=== PATIENT | male | born 1955 | race African-American/Black ===

== ENCOUNTER 2018-08-10 08:21 | Inpatient (IN) | payer MEDICAID ==
[~2018-08-10] VITALS: Ht 167.6 cm; Wt 83.0 kg
[2018-08-10] MEDS ORDERED: LIPITOR40 MG PO (08:28)
[2018-08-10] MEDS ORDERED: LASIX20 MG PO (08:29)
[2018-08-10] MEDS ORDERED: PHENERGAN25 M1 PO (08:29)
[2018-08-10] MEDS ORDERED: AMOXICILLIN500 M1 PO (08:30)
[2018-08-10] MEDS ORDERED: PRINIVIL10 MG PO (08:31)
[2018-08-10] MEDS ORDERED: KLOR-CON 1010 MEQ PO (08:31)
[2018-08-10] MEDS ORDERED: ASPIRIN325 MG PO (08:31)
[2018-08-10] MEDS ORDERED: AMOX-CLAV PO (08:34)
[2018-08-10 08:59] LABS: BASOPHILS 0.3 % (0-2); EOSINOPHILS 1.5 % (0-7); HEMATOCRIT 37.4 % (42.0-54.0); HEMOGLOBIN 12.9 g/dL (13.5-17.5); IMMATURE GRANULOCYTES 0.4 % (0-5); MCH 28.7 pg (26.0-34.0); MCHC 34.5 g/dL (31.0-37.0); MCV 83.3 fL (80.0-100.0); MONOCYTES 9.4 % (2-11); NEUTROPHILS 72.4 % (40-80); PLATELET COUNT 211 10x3/uL (130-400); RBC 4.49 10x6/uL (4.20-6.10); RDW 15.2 % (11.5-14.5); WBC 7.5 10x3/uL (4.8-10.8)
[2018-08-10 09:15] LABS: ALKALINE PHOSPHATASE 109 U/L (46-116); ALT (SGPT) 53 U/L (10-68); BILIRUBIN - TOTAL 0.66 mg/dL (0.2-1.3); CALC OSMOLALITY 288 mosm/kg (275-300); CALCIUM 8.4 mg/dL (8.5-10.1); CARBON DIOXIDE 23.4 mmol/L (21.0-32.0); CHLORIDE - SERUM 111 mmol/L (98-107); CREATININE - SERUM 1.2 mg/dL (0.6-1.3); GLUCOSE 127 mg/dL (74-106); POTASSIUM - SERUM 3.7 mmol/L (3.5-5.1); PROTEIN - SERUM 6.3 g/dL (6.4-8.2); SODIUM 143 mmol/L (136-145); UREA NITROGEN 17 mg/dL (7-18); eGFR NON AFRICAN AMERICAN 66 mL/min (90-120)
[2018-08-10 09:25] LABS: CKMB 2.8 U/L (0.0-3.6); CREATINE KINASE 262 UL (21-232); PRO BNP 1878 pg/mL (0-125); TROPONIN-I 0.051 ng/mL (0.000-0.060)
--- NOTE | 2018-08-10 11:08 | NUR ---
PATIENT ADMITTED FROM ER TO ROOM 2214. LUNGS CLEAR BILATERALLY IN ALL SAENZ. SLIGHTLY DIMINISHED RIGHT LOWER LOBE. HEART SOUNDS S1 AND S2 HEARD IN ALL SAENZ. BOWEL SOUNDS ACTIVE X 4. SKIN INTACT WITHOUT REDNESS. DENIES PAIN. DENIES NEEDS. WILL CONTINUE TO MONITOR.
[2018-08-10 11:16] VITALS: BP 123/65; BMI 29.6
--- NOTE | 2018-08-10 14:46 | NUR ---
PATIENT SITTING IN BED. REQUESTED AND GIVEN ICE WATER. AT BEDSIDE. DENIES FURTHER NEEDS.
[2018-08-10 16:16] VITALS: BP 123/65
--- NOTE | 2018-08-10 16:49 | NUR ---
MEDICATION GIVEN WITHOUT DIFFICULTY. EDUCATION PROVIDED ON LOVENOX INJECTION. VERBALIZED UNDERSTANDING. REFUSES SCDS R/T UP AD BERNARDO. WILL CONTINUE TO MONITOR.
--- NOTE | 2018-08-10 17:43 | NUR ---
SITTING IN BED EATING DINNER. DENIES NEEDS.
--- NOTE | 2018-08-10 18:36 | NUR ---
PATIENT SITTING UP IN CHAIR. DENIES PAIN. DENIES NEEDS
--- NOTE | 2018-08-10 19:45 | NUR ---
PT SITTING UP IN BEDSIDE CHAIR, NO SIGNS OF DISTRESS. ALERT AND ORIENTED. IV RIGHT HAND SL. DENIES PAIN OR NEEDS. REFUSES SCDS. CL IN REACH, WILL CONT TO MONITOR
[2018-08-10 21:20] VITALS: BP 127/55
[2018-08-11 00:26] VITALS: BP 134/60
[2018-08-11 04:38] VITALS: BP 124/68
[2018-08-11 08:44] VITALS: BP 128/67
[2018-08-11 12:30] VITALS: BP 132/58
[2018-08-11 12:35] VITALS: Ht 167.6 cm; Wt 83.0 kg
[2018-08-11 15:04] LABS: BASOPHILS 0.2 % (0-2); HEMATOCRIT 36.8 % (42.0-54.0); HEMOGLOBIN 12.5 g/dL (13.5-17.5); IMMATURE GRANULOCYTES 0.5 % (0-5); LYMPHOCYTES 11.5 % (15-50); MCH 28.5 pg (26.0-34.0); MEAN PLATELET VOLUME 10.2 fL (7.4-10.4); MONOCYTES 8.9 % (2-11); NEUTROPHILS 77.9 % (40-80); PLATELET COUNT 226 10x3/uL (130-400); RBC 4.38 10x6/uL (4.20-6.10); RDW 15.3 % (11.5-14.5); WBC 8.1 10x3/uL (4.8-10.8)
[2018-08-11 15:16] LABS: ANION GAP 11.5 mmol/L (8-16); CALCIUM 8.4 mg/dL (8.5-10.1); CARBON DIOXIDE 25.1 mmol/L (21.0-32.0); CREATININE - SERUM 1.4 mg/dL (0.6-1.3); POTASSIUM - SERUM 3.6 mmol/L (3.5-5.1)
[2018-08-11 15:38] VITALS: BP 123/60
--- NOTE | 2018-08-11 17:00 | NUR ---
PT SITTING UP IN CHAIR AT BEDSIDE, NO NEEDS VOICED, PT WALKED 3 TIMES AROUND NURSES STATION WITH STUDENT NURSE, TOLERATED WELL, NO C/O SOB WILL CONTINUE WITH PLAN OF CARE
--- NOTE | 2018-08-11 19:45 | NUR ---
PT SITTING UP IN BEDSIDE CHAIR, NO SIGNS OF DISTRESS. ALERT AND ORIENTED. PT STATES NO PAIN OR COMPLAINTS. IV RIGHT HAND SL. PT UP AD BERNARDO, WALKED AROUND NURSES STATION AND WALKS AROUND ROOM. REFUSES SCDS. CL IN REACH, WILL CONT TO MONITOR
[2018-08-11 22:16] VITALS: BP 146/68
[2018-08-12 04:51] VITALS: BP 113/47
[2018-08-12 07:46] LABS: BASOPHILS 0.3 % (0-2); EOSINOPHILS 2.3 % (0-7); HEMOGLOBIN 12.2 g/dL (13.5-17.5); IMMATURE GRANULOCYTES 0.6 % (0-5); LYMPHOCYTES 15.9 % (15-50); MCH 28.6 pg (26.0-34.0); MCHC 33.9 g/dL (31.0-37.0); MCV 84.5 fL (80.0-100.0); MEAN PLATELET VOLUME 10.4 fL (7.4-10.4); MONOCYTES 7.8 % (2-11); NEUTROPHILS 73.1 % (40-80); PLATELET COUNT 230 10x3/uL (130-400); RBC 4.26 10x6/uL (4.20-6.10); RDW 15.7 % (11.5-14.5); WBC 8.6 10x3/uL (4.8-10.8)
[2018-08-12 07:47] LABS: ANION GAP 12.7 mmol/L (8-16); CALCIUM 8.9 mg/dL (8.5-10.1); CREATININE - SERUM 1.2 mg/dL (0.6-1.3); POTASSIUM - SERUM 3.7 mmol/L (3.5-5.1)
[2018-08-12 08:30] VITALS: BP 148/62
--- NOTE | 2018-08-12 09:02 | NUR ---
pt sitting up at bedside having breafast, no s/s of distress, family in room at bedside as well, cl in reach, continue with plan of care
[2018-08-12] MEDS ORDERED: LEVAQUIN750 MG PO (10:47)
[2018-08-12] MEDS ORDERED: ALBUTEROL SULF8.5 GM INH (10:48)
--- NOTE | 2018-08-19 10:38 | EC ---
PATIENT:SIGRID STOLL DATE OF SERVICE: 08/10/18 SEX: M MEDICAL RECORD: [id number] DATE OF : [birth year] LOCATION:[facility] AGE OF PATIENT: 62 ADMISSION DATE: 08/10/18 REFERRING PHYSICIAN: INTERPRETING PHYSICIAN: LESLEY MOHR MD ECHOCARDIOGRAM REPORT ECHO CHARGES 4 ECHO COMPLETE Date: 08/11/18 CLINICAL DIAGNOSIS: EVALUATE LV FUNCTION ECHOCARDIOGRAPHIC MEASUREMENTS (adult normal given) AC root (d.<3.7cm) 2.6 cm LV Septum d (<1.2 cm> 1.2 cm Valve Excursion 1.7 cm LV Septum (systole) 1.4 cm Left Atria (s.<4.0cm> 4.2 cm LVPW d(<1.2cm) 1.2 cm RV (d.<2.3cm) 3.2 cm LVPW (sytole) 1.6 cm LV diastole(<5.6CM) 4.9 cm MV E-F(>70mm/sec) cm LV systole 3.5 cm LVOT Diameter 2.1 cm MV exc.(>10mm) cm Est.ejection fraction (50-75%) % DOPPLER: LVIT cm/sec A 40 cm/sec E 104 cm/sec LA cm/sec RVSP 58.8 mmHg LVOT 98 cm/sec AOP1/2T m/s Asc. Ao 319 cm/sec RVOT 51 cm/sec RA cm/sec PA 70 cm/sec AV Gradient Peak 40.6 mmHg AV Mean 23.3 mmHg AV Area 0.9 cm MV Gradient Peak 6.1 mmHg MV Mean 2.5 mmHg MV Area cm COMMENTS: Supply Chain Associate: Jessica [facility] Die Cutter Diamond: 1 Dr. Mohr TAPE# PACS Pericardial Effusion Y DATE OF SERVICE: 08/12/2018 ECHOCARDIOGRAM FINDINGS: 1. Left ventricular chamber size is within normal limits. Left ventricular systolic function is normal. Overall ejection fraction estimated at 60%. 2. Left atrium is enlarged at 4.2 cm. Right atrium and right ventricle chamber sizes are as well mildly dilated. 3. Valvular structures: Aortic valve demonstrates mild calcific aortic ECHOCARDIOGRAM REPORT [id number] SIGRID STOLL stenosis, valve area calculates to 1.0 cm-squared and has a gradient of 40-mm across the valve. The remaining valvular structures have normal structure and motion. 4. Doppler interrogation elsewise reveals moderate aortic insufficiency, mild mitral regurgitation, mild tricuspid regurgitation, no other valvular insufficiency or stenosis. Pulmonary systolic pressure is estimated at 59 mmHg. 6. No evidence of pericardial effusion or left ventricular thrombus. TRANSINT:[id number] Voice Confirmation ID: [id number] DOCUMENT ID: [id number] LESLEY MOHR MD at 1038 CC: [id number] DICTATION DATE: 08/12/18403 CHIEF DIGITAL MEDIA OFFICER: 08/12/18 0413 DIS IN 08/12/18 [address] [place] [address]
== END 2018-08-12 12:24 | disposition home or self-care (01) | DRG 193 ==
LOC: D.ER 08:21 → D.MS 10:30
PROVIDERS: Family Medicine; ADMIT Internal Medicine Nephrology; ATTEND Internal Medicine Nephrology
DX: J18.9 Pneumonia, unspecified organism (principal); I50.33 Acute on chronic diastolic (congestive) heart failure; I11.0 Hypertensive heart disease with heart failure

== ENCOUNTER → 2018-10-21 07:51 | Outpatient (CLI) | payer MEDICAID ==
[2018-08-11 12:35] VITALS: BMI 29.5
--- NOTE | ~2018-10-21 | ST ---
PATIENT:SIGRID STOLL MEDICAL RECORD: [id number] SEX: M [facility] ORDER #: ADMISSION DATE: 10/21/18 AGE OF PATIENT: 63 REFERRING PHYSICIAN: INTERPRETING PHYSICIAN: LESLEY GORDON MD DATE OF SERVICE: 10/21/2018 INDICATIONS: Angina and hypertension. PROCEDURE IN DETAIL: He was exercised on standard Lexiscan protocol with 33 mCi of sestamibi injected at peak stress and 11 mCi used previously for rest images. FINDINGS: Gated SPECT reveals a depressed ejection fraction 48% with significant LV dilatation. SPECT IMAGING: Cardiolite was used as myocardial perfusion agent. There is a moderate fixed perfusion defect inferiorly throughout the basal, mid apical, and inferior segments. OVERALL IMPRESSION: This is an abnormal nuclear stress test, moderate fixed perfusion defect inferiorly as well as LV dilatation, decreased LV function with stress. This places him in the high-risk abnormality category especially in a patient with no past history of a previous myocardial infarction. We will proceed with coronary angiography as a followup study. TRANSINT:[id number] Voice Confirmation ID: [id number] DOCUMENT ID: [id number] LESLEY GORDON MD CC: MIKE JEROME MD [id number] DICTATION DATE: 10/22/18 1031 HOTEL CONTROLLER: 10/22/18 2256 DEP CLI 10/21/18 [address] [place] [address]
[~2018-10-21 07:51] MED LIST: ALBUTEROL SULF8.5 GM INH; AMOX-CLAV PO; AMOXICILLIN500 M1 PO; ASPIRIN325 MG PO; KLOR-CON 1010 MEQ PO; LASIX20 MG PO; LEVAQUIN750 MG PO; LIPITOR40 MG PO; PHENERGAN25 M1 PO; PRINIVIL10 MG PO
== END | disposition home or self-care (01) ==
LOC: D.HCCARDIO 07:51
PROVIDERS: ATTEND Internal Medicine Interventional Cardiology
DX: R07.9 Chest pain, unspecified (principal)

== ENCOUNTER 2018-11-06 08:31 | Outpatient (CLI) | payer MEDICAID ==
[~2018-11-06] VITALS: Ht 167.6 cm; Wt 83.2 kg
--- NOTE | ~2018-11-06 | HEMODYNAMI ---
PATIENT:SIGRID STOLL MEDICAL RECORD: [id number] : 59 LOCATION:[facility] ADMISSION DATE: 11/06/18 Generatedon:11/06/201811:08 Patient name: SIGRID STOLL Patient #: [id number] SSN: : 1955 Date of study: 11/06/2018 Page: Of Hemodynamic Procedure Report Patient Data Patient Demographics Procedure consent was obtained First Name: SIGRID Gender: Male Last Name: DODIE : 1955 Patient #: [id number] Age: 63 year(s) Race: Black Additional ID: [id number] Contact details [address]: [address] [place] [address] State: [place] City: [place] Zip code: [address] Past Medical History Allergies: No known allergies Admission Admission Data Admission Date: 11/06/2018 Admission Time: 8:31 Lab Results Lab Result Date: 11/06/2018 Lab Result Time: 0:00 Biochemistry Name Units Result Min Max BUN mg/dl 18 --(---*)-- 7 18 Creatinine mg/dl 1.4 --(----)*- 0.6 1.3 eGFR ml/min 66 *-(----)-- 90 120 AM CBC Name Units Result Min Max Hematocrit % 38.3 *-(----)-- 42 54 Hemoglobin g/dl 13.7 --(*---)-- 13.5 17.5 Procedure Procedure Types Cath Procedure Diagnostic Procedure LHC LHC w/Coronaries Procedure Description Procedure Date Procedure Date: 11/06/2018 Procedure Start Time: 10:52 Procedure End Time: 11:04 Procedure Staff Name Function Aubrey Mohr MD Performing Physician Kamilah Bernard RT Monitor Ha Mcdaniel RT Scrub Rossy Mart RT Scrub Gely Mccray RN Nurse Procedure Data Cath Procedure Fluoroscopy Diagnostic fluoroscopy Total fluoroscopy Time: 2 time: 2 min min Diagnostic fluoroscopy Total fluoroscopy dose: 341 dose: 341 mGy mGy Contrast Material Contrast Material Type Amount (ml) Isovue 300 40 Entry Location Entry Primary Successful Side Size Upsize Upsize Entry Closure Bah ccessful Closure Location (Fr) 1 (Fr) 2 (Fr) Remarks Device Remarks Radial Right 6 Fr Mechanical artery Short Compression Estimated blood loss: 10 ml Diagnostic catheters Device Type Used For End Catheter Placement DIAGNOSTIC Benkelman 110cm 5 Procedure Fr catheter ([id number]) Procedure Complications No complications Procedure Medications Medication Administration Route Dosage Oxygen etCO2 Nasal cannula 2 l/min Lidocaine 2% added to field 20 Heparin Flush Bag added to field 2 bags (1000units/500ml NS) 0.9% NaCl I.V. 100 ml/hr Radial Cocktail I.A. 1 syringe (Verapamil 2mg/Nitro 400mcg/Heparin 1500units) Versed I.V. 1 mg Fentanyl I.V. 50 mcg Versed I.V. 1 mg Fentanyl I.V. 50 mcg Hemodynamics Rest HGB: 13.7 (g/dl) Heart Rate: 76 (bpm) Snapshots Pre Cath Intra NCS Post Cath Vital Signs Time Heart Resp SPO2 etCO2 NIBP (mmHg) Rhythm Pain Sedation Rate (ipm) (%) (mmHg) Status Level (bpm) 10:41:15 80 27 97 0 135/78(121) NSR 0 (11) 10(A) , No pain 10:45:31 77 25 96 0 134/61(110) NSR 0 (11) 10(A) , No pain 10:49:51 83 14 97 0 114/67(84) NSR 0 (11) 10(A) , No pain 10:54:07 78 13 98 18 132/58(79) NSR 0 (11) 10(A) , No pain 10:58:19 94 15 99 29.2 120/59(82) NSR 0 (11) 10(A) , No pain 11:02:31 78 15 96 30 111/59(81) NSR 0 (11) 10(A) , No pain Medications Time Medication Route Dose Verified Delivered Reason Notes Effectiveness by by 10:39:46 Oxygen etCO2 2 l/min Aubrey Hong used for Nasal Onur Mccray supervisor travel trailer cannula 10:39:53 Lidocaine 2% added 20ml Aubrey Burgos for local to vial Onur Mohr MD anesthetic field 10:39:59 Heparin Flush added 2 bags Aubrey Burgos used for Bag to Onur Mohr MD procedure (1000units/500ml field NS) 10:40:08 0.9% NaCl I.V. 100 Aubrey Hong Per ml/hr Onur Mccray RN physician 10:52:05 Versed I.V. 1 mg Aubrey Hong for sedation Onur Mccray RN 10:52:10 Fentanyl I.V. 50 mcg Aubrey Hong for sedation Onur Mccray RN 10:56:34 Radial Cocktail I.A. 1 Aubrey Burgos for (Verapamil syringe Onur Mohr MD vasodilation 2mg/Nitro 400mcg/Heparin 1500units) 10:56:43 Versed I.V. 1 mg Aubrey Hong for sedation Onur Mccray RN 10:56:46 Fentanyl I.V. 50 mcg Aubrey Hong for sedation Onur Mccray RN Procedure Log Time Note 10:20:25 Ha Mcdaniel RT(R) sent for patient. Start room use. 10:22:32 Signed procedure consent form obtained from patient. 10:22:34 Diagnostic Cath status Elective 10::59 Time tracking: Regular hours (M-F 7:00 - 5:00) 10:23:04 Plan of Care:Hemodynamics will remain stable., Cardiac rhythm will remain stable., Comfort level will be maintained., Respiratory function will remain adequate., Patient/ family verbilizes understanding of procedure., Procedure tolerated without complication., Recovers from procedure without complications.. 10:23:13 Patient allergic to No known allergies 10:33:42 Lab Result : BUN 18 mg/dl 10:33:42 Lab Result : Creatinine 1.4 mg/dl 10:33:42 Lab Result : eGFR AM 66 ml/min 10:33:42 Lab Result : Hemoglobin 13.7 g/dl 10:33:42 Lab Result : Hematocrit 38.3 % 10:33:48 Patient received from Pre/Post Procedure Room to CCL 1 Alert and oriented. Tansferred to table in Supine position. 10:33:50 Warm blankets applied, and phil hugger turned on for patient comfort. 10:33:50 Correct patient and procedure confirmed by team. 10:33:52 ECG and BP/O2 sat monitors applied to patient. 10:39:46 Oxygen 2 l/min etCO2 Nasal cannula was administered by Gely Mccray RN; used for procedure; 10:39:53 Lidocaine 2% 20ml vial added to field was administered by Aubrey Mohr MD; for local anesthetic; 10:39:59 Heparin Flush Bag (1000units/500ml NS) 2 bags added to field was administered by Aubrey Mohr MD; used for procedure; 10:40:08 0.9% NaCl 100 ml/hr I.V. was administered by Gely Mccray RN; Per physician; 10:40:09 Vital chart was started 10:48:57 Baseline sample Acquired. 10:49:00 Rhythm: sinus rhythm 10:49:01 Full Disclosure recording started 10:49:12 H&P Date Dictated: 10/15/2018 Within 30 days and on chart., H&P Addendum completed by physician on day of procedure. (MUST COMPLETE FOR ALL OUTPATIENTS). 10:49:13 Pre-procedure instructions explained to patient. 10:49:13 Pre-op teaching completed and patient verbalized understanding. 10:49:15 Family in patients room. 10:49:16 Patient NPO since Midnight. 10:49:17 Is patient on blood thinner?No 10:49:20 Patient diabetic? No. 10:49:23 Previous problem with sedation/anesthesia? No ? 10:49:24 Snore? Yes 10:49:26 Sleep apnea? No 10:49:32 Deviated septum? No 10:49:33 Opens mouth fully? Yes 10:49:34 Sticks out tongue? Yes 10:49:37 Dentures? No ? 10:49:53 Airway obstruction? No ? 10:49:58 Modified See's test Ulnar < 7 seconds 10:50:01 Patient pain scale 0/10 ?. 10:50:13 IV patent on arrival in left hand with 0.9% NaCl at [facility]. 10:50:16 Lab results completed and on chart. 10:50:19 Right Radial & Right Groin area was prepped with chlora-prep and draped in sterile fashion 10:50:20 Alarms reviewed by R. N. 10:50:21 Sharps counted by scrub and verified by R.N. 10:50:23 Use device set Radial Dx or PCI 10:50:24 ACIST Syringe (27872) opened to sterile field. 10:50:25 Bag Decanter (2002S) opened to sterile field. 10:50:26 ACIST Hand Control (58906) opened to sterile field. 10:50:26 ACIST Manifold (57477) opened to sterile field. 10:50:29 Tegaderm 4 x 4 (1626W) opened to sterile field. 10:50:43 Medline Cath Pack ([id number]) opened to sterile field. 10:50:44 MBrace Wrist Support ([id number]) opened to sterile field. 10:50:45 EMERALD Guide Wire (746-349) opened to sterile field. 10:50:46 SHEATH 6FR RAIN (7773869) opened to sterile field. 10:51:43 --------ALL STOP TIME OUT------ 10:51:43 Final Timeout: patient, procedure, and site verified with staff and physician. All members of the team are in agreement. 10:51:44 Right Radial & Right Groin site verified by team. 10:51:48 Fire Safety Assessment: A--An alcohol-based skin anteseptic being used preoperatively., C--Open oxygen or nitrous oxide is being used., D--An ESU, laser, or fiber-optic light is being used. 10:51:50 Physical assessment completed. ASA score P 2 - A patient with mild systemic disease as per Aubrey Mohr MD. 10:51:55 2) 60-89 Mildly reduced kidney function, and other findings (as for stage 1) point to kidney disease. 10:51:59 Maximum allowable contrast does (3.7 X eGFR X 0.75)183 ml. 10:52:02 Sedation plan: IV Moderate Sedation Medication:Versed, Fentanyl 10:52:05 Versed 1 mg I.V. was administered by Gely Mccray RN; for sedation; 10:52:10 Fentanyl 50 mcg I.V. was administered by Gely Mccray RN; for sedation; 10:52:48 Procedure started. 10:52:54 Local anesthetic to right radial artery with Lidocaine 2% by Aubrey Mohr MD.INITIAL ACCESS ONLY 10:54:11 Zero performed for pressure channel P1 10:55:13 A 6 Fr Short sheath was inserted into the Right Radial artery 10:56:34 Radial Cocktail (Verapamil 2mg/Nitro 400mcg/Heparin 1500units) 1 syringe I.A. was administered by Aubrey Mohr MD; for vasodilation; 10:56:43 Versed 1 mg I.V. was administered by Gely Mccray RN; for sedation; 10:56:46 Fentanyl 50 mcg I.V. was administered by Gely Mccray RN; for sedation; 10:57:13 A DIAGNOSTIC Benkelman 110cm 5 Fr catheter ([id number]) was advanced over the wire and used for Procedure. 10:58:17 LV gram done using CABRERA 10:58:19 Injector settings: Ml/sec: 5, Volume: 15, 10:58:28 EF : 40 % 10:59:25 RCA angiography performed. 10:59:30 Catheter exchanged over wire. 11:00:44 GUIDE 6FR EBU 4.0 guide catheter ([id number]) opened to sterile field. 11:01:02 6 Fr EBU 4 guide catheter was inserted over the wire 11:01:25 LCA angiography performed. 11:01:35 Catheter removed. 11:01:40 Procedure ended.(Physican Out) 11:01:51 TR BAND Standard ([id number]) opened to sterile field. 11:01:56 Fluoroscopy time 02.00 minutes. 11:02:00 Fluoroscopy dose: 341 mGy 11:02:00 Flurop Dose total: 341 11:02:03 Contrast amount:Isovue 300 40ml. 11:02:06 Sharps counted by scrub and verified by R.N. 11:02:27 Sheath removed intact; hemostasis achieved with Mechanical Compression to the Right Radial artery. 11:02:31 TR band inflated with 10cc of air. 11:02:37 Post-procedure physical assessment completed. ASA score P 2 - A patient with mild systemic disease as per Aubrey Mohr MD. 11:02:39 Post procedure rhythm: sinus rhythm 11:02:44 Estimated blood loss: 10 ml 11:02:45 Post procedure instruction explained to patient.Patient verbalizes understanding. 11:02:45 Patient needs reinforcement of post procedure teaching. 11:03:49 Procedure and supply charges have been captured, reviewed, submitted and are correct. 11:03:51 Procedure Complication : No complications 11:03:53 Vital chart was stopped 11:03:53 See physician's report for complete and final results. 11:03:56 Report given to Pre/Post Procedure Room. 11:03:59 Patient transfered to Pre/Post Procedure Room with Bed. 11:04:01 Procedure ended. 11:04:01 Full Disclosure recording stopped 11:04:06 End room use (Document Last) Device Usage Item Name Manufacture Quantity Catalog Hospital Part Current Minima l Lot# / Number Charge Number Stock Stock Serial# Code ACIST Acist 1 69310 660985 870663 949130 20 Syringe Medical (68025) Systems Inc Bag Microtek 1 2001S 580456 80032 982283 5 Decanter Medical Inc. (2001S) ACIST Hand Acist 1 36522 386369 661983 825782 5 Control Medical (75739) Systems Inc ACIST Acist 1 38952 514594 814387 962320 5 Manifold Medical (29335) Systems Inc Tegaderm 4 3M 1 1626W 814821 674428 343010 5 x 4 (1626W) Medline Medline 1 [id number] 039123 65735 057023 5 Cath Pack ([id number]) MBrace Advanced 1 140-0250-00 412353 32490 754312 5 Wrist Vascular Support Dynamics (010048409) EMERALD Cardinal 1 502-455 697300 637648 819536 5 Guide Wire Health (502455) SHEATH 6FR Cardinal 1 [id number] 066340 7032691 879396 5 [facility] (0773033) DIAGNOSTIC Terumo 1 40-3983 259925 909630 325311 5 Benkelman 110cm 5 Fr catheter (584490) GUIDE 6FR Medtronic 1 [id number] 199760 97505 976916 1 EBU 4.0 guide catheter ([id number]) TR BAND Terumo 1 [id number] 114559 057657 832549 40 Standard ([id number]) Signature Audit Mchenry Stage Time Signature Unsigned Intra-Procedure 11/06/2018 Kamilah Bernard 11:08:42 AM RT(R) Signatures Performing Physician : Signature : Aubrey Mohr MD Date : Time : Monitor : Kamilah Bernard Signature : RT Date : Time : Nurse : Buffie Mccray RN Signature : Date : Time : [address] [place] [address]
[2018-11-06] MEDS ORDERED: COREG 3.1253.125 MG PO (08:54)
[2018-11-06 09:00] VITALS: BP 121/61; Ht 167.6 cm; Wt 83.2 kg
[2018-11-06 09:10] LABS: BASOPHILS 0.3 % (0-2); EOSINOPHILS 1.7 % (0-7); HEMATOCRIT 38.3 % (42.0-54.0); HEMOGLOBIN 13.7 g/dL (13.5-17.5); IMMATURE GRANULOCYTES 0.4 % (0-5); LYMPHOCYTES 14.9 % (15-50); MCH 29.6 pg (26.0-34.0); MCHC 35.8 g/dL (31.0-37.0); MCV 82.7 fL (80.0-100.0); MEAN PLATELET VOLUME 9.8 fL (7.4-10.4); MONOCYTES 8.5 % (2-11); NEUTROPHILS 74.2 % (40-80); PLATELET COUNT 188 10x3/uL (130-400); RBC 4.63 10x6/uL (4.20-6.10); RDW 13.6 % (11.5-14.5); WBC 7.3 10x3/uL (4.8-10.8)
[2018-11-06 09:26] LABS: ANION GAP 11.9 mmol/L (8-16); CARBON DIOXIDE 24.7 mmol/L (21.0-32.0); CREATININE - SERUM 1.4 mg/dL (0.6-1.3); POTASSIUM - SERUM 3.6 mmol/L (3.5-5.1)
--- NOTE | 2018-11-06 11:30 | NUR ---
2L NC, NO RESP DISTRESS. RIGHT WRIST TR BAND CDI, NO BLEEDING OR HEMATOMA NOTED. NO C/O PAIN OR NAUSEA. VSS. FAMILY AT BEDSIDE, CALL LIGHT WITHIN REACH.
--- NOTE | 2018-11-06 12:00 | NUR ---
3CC OF AIR REMOVED FROM TR BAND WITH NO BLEEDING NOTED. SIPPING ON DRINK AND EATING SANDWICH WITH NO C/O NAUSEA. VSS. WILL CONTINUE TO MONITOR.
--- NOTE | 2018-11-06 12:18 | NUR ---
3CC OF AIR REMOVED FROM TR BAND WITH NO BLEEDING NOTED.
--- NOTE | 2018-11-06 12:36 | NUR ---
DARRYL AT BEDSIDE PERFORMING ECHO PER ORDERS.
--- NOTE | 2018-11-06 12:50 | NUR ---
LEFT PIV D/C'D WITH CATHETER INTACT, BAND AID TO SITE. 3CC OF AIR REMOVED FROM TR BAND WITH NO BLEEDING NOTED. UP TO BEDSIDE TO GET DRESSED.
--- NOTE | 2018-11-06 13:00 | NUR ---
REMAINING AIR REMOVED FROM TR BAND WITH NO BLEEDING NOTED. DRESSING PLACED TO SITE. DISCHARGE INSTRUCTIONS GIVEN TO PT AND FAMILY, BOTH VERBALIZED UNDERSTANDING.
--- NOTE | 2018-11-06 13:15 | NUR ---
TAKEN OUT VIA WHEELCHAIR BY CATH BURGLAR ALARM MECHANIC. LEFT FACILITY WITH FAMILY AND ALL PERSONAL BELONGINGS.
--- NOTE | 2018-11-06 16:52 | OP ---
PATIENT NAME: SIGRID STOLL MEDICAL RECORD: [id number] :59 LOCATION:D.CAT ADMISSION DATE: SURGEON: LESLEY GORDON MD DATE OF OPERATION: 11/06/2018 PROCEDURES: 1. Left heart catheterization. 2. Selective coronary angiography. 3. Left ventriculogram. INDICATION: Angina, shortness of breath, lower extremity swelling. PROCEDURE IN DETAIL: After informed consent was obtained and after a detailed description of risks, benefits as well as alternative therapies, the patient elected to proceed with angiogram and heart catheterization. The right femoral area was prepped and draped in normal sterile fashion. The right radial artery was prepped and draped in normal sterile fashion. Right radial artery was cannulated via modified Seldinger technique with placement of 6-Faroese sheath. All catheters exchanged through this sheath. FINDINGS: The left ventriculogram was performed in standard 30-degree CABRERA view, reveals a mildly dilated left ventricle, ejection fraction preserved at 50% to 55%. There is a 30-mm gradient across the aortic valve. SELECTIVE CORONARY ANGIOGRAPHY: Left main, left anterior descending, left circumflex, right coronary artery are all smooth-walled vessels with no angiographic evidence of coronary artery disease. OVERALL IMPRESSION: Aortic stenosis is present with a 30-mm gradient across the aortic valve. Mildly dilated left ventricle, but preserved LV function. We will get an echocardiogram to evaluate for aortic stenosis. TRANSINT:[id number] Voice Confirmation ID: [id number] DOCUMENT ID: [id number] LESLEY GORDON MD at 1652 CC: [id number] DICTATION DATE: 11/06/18 1300 FISH BUTCHER: 11/06/18 1311 DEP CLI 11/06/18 [facility] [address] [place] [address]
--- NOTE | 2018-11-06 16:52 | EC ---
PATIENT:SIGRID STOLL DATE OF SERVICE: 11/06/18 SEX: M MEDICAL RECORD: [id number] DATE OF : 59 LOCATION:D.CAT AGE OF PATIENT: 63 ADMISSION DATE: 11/06/18 REFERRING PHYSICIAN: INTERPRETING PHYSICIAN: LESLEY MOHR MD ECHOCARDIOGRAM REPORT ECHO CHARGES 4 ECHO COMPLETE Date: 11/06/18 CLINICAL DIAGNOSIS: DILATED CARDIOMYOPATHY ECHOCARDIOGRAPHIC MEASUREMENTS (adult normal given) AC root (d.<3.7cm) 2.6 cm LV Septum d (<1.2 cm> 1.2 cm Valve Excursion 1.1 cm LV Septum (systole) 1.7 cm Left Atria (s.<4.0cm> 4.4 cm LVPW d(<1.2cm) 1.4 cm RV (d.<2.3cm) 2.9 cm LVPW (sytole) 1.9 cm LV diastole(<5.6CM) 6.8 cm MV E-F(>70mm/sec) cm LV systole 4.4 cm LVOT Diameter 2.1 cm MV exc.(>10mm) cm Est.ejection fraction (50-75%) % DOPPLER: LVIT cm/sec A 46.0 cm/sec E 70.0 cm/sec LA cm/sec RVSP 73.0 mmHg LVOT 74.0 cm/sec AOP1/2T 306.0m/s Asc. Ao 295 cm/sec RVOT 46.0 cm/sec RA cm/sec PA 92.0 cm/sec AV Gradient Peak 35.0 mmHg AV Mean 20.4 mmHg AV Area 0.9 cm MV Gradient Peak 4.8 mmHg MV Mean 1.8 mmHg MV Area cm COMMENTS: Public Information Specialist: 1 DARRYL REEDEROE Assistant Grocery Store Manager: 1 Dr. Mohr TAPE# PACS Pericardial Effusion Y DATE OF SERVICE: 11/06/2018 FINDINGS: 1. Left ventricular chamber size is mildly dilated. Left ventricular systolic function is normal at 55%. 2. Left atrium is enlarged at 4.4 cm. Right atrium and right ventricle chamber sizes are as well mildly dilated. 3. Valvular structures: Aortic valve is most likely a bicuspid aortic valve. There is moderate aortic stenosis, valve area calculates to 0.9 cm-squared with gradient of 35 mm across the valve. The remaining valvular structures have ECHOCARDIOGRAM REPORT [id number] SIGRID STOLL normal structure and motion. 4. Doppler interrogation elsewise reveals moderate aortic insufficiency, jqme-sz-rvtfrwwc mitral regurgitation, jrlb-wb-wyxcvrgg tricuspid regurgitation, no other valvular insufficiency or stenosis. Pulmonary systolic pressure is elevated at 73 mmHg. 5. Small pericardial effusion is present. This is not hemodynamically significant. TRANSINT:[id number] Voice Confirmation ID: [id number] DOCUMENT ID: [id number] LESLEY MOHR MD at 1652 CC: [id number] DICTATION DATE: 11/06/18 1301 OUTSIDE SALES CONSULTANT: 11/06/18 1314 DEP CLI 11/06/18 [facility] [address] [place] [address]
== END 2018-11-06 13:15 | disposition home or self-care (01) ==
LOC: D.CATH 08:31
PROVIDERS: ATTEND Internal Medicine Interventional Cardiology
DX: I35.0 Nonrheumatic aortic (valve) stenosis (principal); Z01.812 Encounter for preprocedural laboratory examination

== ENCOUNTER 2018-11-12 06:40 | Inpatient (IN) | payer MEDICAID ==
[~2018-11-12] VITALS: Ht 167.6 cm; Wt 88.0 kg
[~2018-11-12 06:40] MED LIST changes: +COREG 3.1253.125 MG PO
[2018-11-12 11:11] LABS: LYMPHOCYTES 23.9 % (15-50); MCH 29.8 pg (26.0-34.0); MCHC 34.9 g/dL (31.0-37.0); MCV 85.5 fL (80.0-100.0); MEAN PLATELET VOLUME 9.7 fL (7.4-10.4); NEUTROPHILS 66.5 % (40-80); PLATELET COUNT 197 10x3/uL (130-400); RBC 5.03 10x6/uL (4.20-6.10); RDW 14.8 % (11.5-14.5); WBC 8.1 10x3/uL (4.8-10.8)
[2018-11-12 11:18] LABS: APTT 27.8 SECONDS (22.8-39.4); INR 1.04 (0.85-1.17); PROTIME 13.1 SECONDS (11.6-15.0)
[2018-11-12 11:21] LABS: APPEARANCE CLEAR (CLEAR); BILIRUBIN NEGATIVE (NEGATIVE); COLOR YELLOW (YELLOW); GLUCOSE NEGATIVE (NEGATIVE); KETONE NEGATIVE (NEGATIVE); NITRITE NEGATIVE (NEGATIVE); PROTEIN NEGATIVE (NEGATIVE); SPECIFIC GRAVITY 1.005 (1.005-1.020); UROBILINOGEN NORMAL (NORMAL)
[2018-11-12 11:36] LABS: ALBUMIN 3.3 g/dL (3.4-5.0); BILIRUBIN - TOTAL 0.61 mg/dL (0.2-1.3); CALCIUM 8.7 mg/dL (8.5-10.1); CARBON DIOXIDE 29.2 mmol/L (21.0-32.0); CREATININE - SERUM 1.5 mg/dL (0.6-1.3); PHOSPHOROUS 2.9 mg/dL (2.5-4.9); POTASSIUM - SERUM 4.2 mmol/L (3.5-5.1); PROTEIN - SERUM 6.7 g/dL (6.4-8.2); T4 THYROXIN - FREE 1.06 ng/dL (0.76-1.46); THYROID STIMULATING HORMONE 4.75 uIU/mL (0.36-3.74); URIC ACID 8.4 mg/dL (2.6-7.2)
[2018-11-17] VITALS (69 sets, daily range): BP systolic 70–155; BP diastolic 46–81; BMI 27.0; BMI 30.6
--- NOTE | 2018-11-17 12:00 | NUR ---
PT ARRIVED TO UNIT AROUND 1133 VIA BED FROM OR. INTUBATED WITH 8.0 ETT 25 AT THE LIP. VENT SETTINGS R-14, TV 550, FIO2 60%, PEEP 5. CONNECTED TO ICU TELEMETRY. RIJ WITH PLASMOLYTE AT 100ML/HR, MELISSA AT 0.6MCG/KG/MIN. CVL DRESSING C/D/I. MIDSTERNAL INCISION WITH DRESSING C/D/I. SUBTERNAL DRESSING WITH CT X [address] CONNECTED TO 20CM SUCTION. NO AIR LEAK NOTED. TPM WIRES CONNECTED, PACEMAKER IS CURRENTLY OFF. RIGHT RADIAL SONDRA IN PLACE WITH WRIST PROTECTOR. 20G PIV ON RIGHT AC SALINE LOC. MORALEZ CATHETER IN PLACE WITH CLEAR YELLOW URINE NOTED. SCDS AND NATAN HOSE ON BOTH LE. SWANGANZ AT 50CM ON RIGHT IJ. WRIST RESTRAINTS APPLIED PER ORDERS. SIDE RAILS UP X 2. BED PLACED IN LOW POSITION. WILL CONTINUE TO MONITOR CLOSELY.
--- NOTE | 2018-11-17 13:10 | NUR ---
DR. MCGOVERN NOTIFIED OF INCREASE OUT PUT FROM CHEST TUBE. BP IN LOW 90S WITH MELISSA INFUSING AT 0.9MCG/KG/MIN.
--- NOTE | 2018-11-17 13:15 | NUR ---
250ML BOLUS BEING GIVE AT THIS TIME PER DR. MCGOVERN.
--- NOTE | 2018-11-17 13:23 | NUR ---
DR. MCGOVERN NOTIFIED OF ABGS. ORDERED ONE AMP OF BICARB. RECHECK ABG'S IN 30MIN.
--- NOTE | 2018-11-17 14:00 | NUR ---
ANEL WITH DR. MCGOVERN NOTIFIED THAT BP IS CONTINUES IN LOW 90S AND MICHELLE 80S. ABG RESULTS GIVEN TO HER. WILL NOTIFY DR. MCGOVERN AND GET BACK TO ME WITH ORDERS.
--- NOTE | 2018-11-17 14:26 | NUR ---
DR. MCGOVERN ORDERED 500CC BOLUS TO BE GIVEN AND CHECK PLATELETS AND PT AND INR.
--- NOTE | 2018-11-17 14:38 | NUR ---
500CC BOLUS GIVEN PER ORDERS. LAB DRAWN AND SENT TO LAB. WAITING ON RESULTS.
--- NOTE | 2018-11-17 15:08 | NUR ---
1GM CALCIUM CLORIDE GIVEN PER DR. MCGOVERN. 250CC BOLUS INFUSING AT THIS TIME PER DR. MCGOVERN. VITAMIN K INITIATED. PRESSURE BAGS SWITCHED TO NS.
--- NOTE | 2018-11-17 16:37 | NUR ---
4 UNITS OF FFP GIVEN PER ORDERS. BLOOD DRAWN AT THIS TIME TO RECHECK PT AND INR. SAMPLET SENT TO LAB.
--- NOTE | 2018-11-17 16:42 | MORECARE ---
CASE MANAGEMENT DISCHARGE SUMMARY PATIENT: SIGRID STOLL GENE UNIT: [id number] ADM DATE: 11/17/18 AGE: 63 : 59 SEX: M [facility] AUTHOR: SUSHIL CHRISTIAN PHYSICIAN: REFERRING PHYSICIAN: DEANGELO MCGOVERN MD DATE OF SERVICE: 11/17/18 Discharge Plan Patient Name: SIGRID STOLL [facility] [facility] 1955 Planned Disposition: Home Anticipated Discharge Date: Discharge Date: Expected LOS: Initial Reviewer: [email or web address] Initial Review Date: 11/17/2018 Generated: 11/17/18 5:42 pm Patient Name: SIGRID STOLL Page 40570 at 1642 All edits/amendments must be made on the electronic document DICTATION DATE: 11/17/181641 BUSINESS EDITOR: DORA 11/17/181641 RPT#: [id number] DC DATE: STATUS: ADM IN [facility] [address] [place] [address] END OF REPORT
--- NOTE | 2018-11-17 16:50 | MORECARE ---
CASE MANAGEMENT DISCHARGE SUMMARY PATIENT: SIGRID STOLL UNIT: [id number] ADM DATE: 11/17/18 AGE: 63 : 59 SEX: M ROOM/BED: D[facility] AUTHOR: GINO,DOC PHYSICIAN: REFERRING PHYSICIAN: DEANGELO MCGOVERN MD DATE OF SERVICE: 11/17/18 Discharge Plan Patient Name: SIGRID STOLL Facility: [facility]:[place] : 1955 Planned Disposition: Home Anticipated Discharge Date: Discharge Date: Expected LOS: Initial Reviewer: [email or web address] Initial Review Date: 11/17/2018 Generated: 11/17/18 5:50 pm Comments DCP- Discharge Planning Updated by [email or web address]: Soledad Garcia on 11/17/18 3:[address] Patient Name: SIGRID STOLL Admission Status: Urgent Accout number: [id number] Admission Date: 11-17-2018 : 1955 Admission Diagnosis: Attending: DEANGELO MCGOVERN Current LOS: 1 Anticipated DC Date: Planned Disposition: Home Primary Insurance: MEDICAID [place] Discharge Planning Comments: CM met with Dulce Garcia patient's significant other at bedside after explaining CM role and obtaining verbal consent. Patient is currently sedated and on ventilator. Dulce states that they live together at their home and plans to return there upon discharge. Dulce feels this would be a safe discharge. CM discussed availability / needs of home health and medical equipment. Dulce denies any discharge needs at this time. Dulce states she will drive him home upon discharge. CM will continue to follow and assist as needed with discharge planning / needs. Belt Builder Helper: Soledad Garcia DCPIA - Discharge Planning Initial Assessment Updated by [email or web address]: Soledad Garcia on 11/17/18 4:42 pm * Is the patient Alert and Oriented? No * How many steps to enter\exit or inside your home? * PCP FRANCHESKA HERNANDES * [facility] * Preadmission Environment Home with Family * ADLs Independent * Equipment None * List name and contact numbers for known caregivers / representatives who currently or will assist patient after discharge: Dory Garcia - [facility] - [phone] * Verbal permission to speak to the caregivers and representatives has been obtained from the patient. N/A * Community resources currently utilized None * Additional services required to return to the preadmission environment? No * Can the patient safely return to the preadmission environment? Yes * Has this patient been hospitalized within the prior 30 days at any hospital? No Last DP export: 11/17/18 3:42 p Patient Name: SIGRID STOLL Page 00432 at 1650 All edits/amendments must be made on the electronic document DICTATION DATE: 11/17/181649 ASSISTANT EDITOR: DORA 11/17/181649 RPT#: [id number] DC DATE: STATUS: ADM IN [facility] [address] [place] [address] END OF REPORT
[2018-11-17 16:54] LABS: INR 1.24 (0.85-1.17); PROTIME 15.1 SECONDS (11.6-15.0)
--- NOTE | 2018-11-17 17:03 | NUR ---
DR. MCGOVERN NOTIFIED OF PT AND INR RESULTS AFTER 4UNITS OF FFP. PT RESTING COMFORTABLY. SPOUSE AT BEDSIDE. BP WITHIN PARAMETERS. OUT PUT IN CHEST TUBE HAS DECREASED. WILL CONTINUE TO MONITOR.
--- NOTE | 2018-11-17 18:32 | NUR ---
UNABLE TO COMPLETE SUICIDE SCREENING AT THIS TIME. PT REMAINS INTUBATED THIS TIME.
--- NOTE | 2018-11-17 19:04 | NUR ---
REPORT RECEIVED, SHIFT ASSESSMENT COMPLETED PER FLOW SHEET. INTUBATED ON VENT, FOLLOWING COMMANDS. RT IJ SWAN FIOR AT APPROXIMATELY 50 CM, LOCKED, PROX INFUSION PORT INFUSING PLASMALYTE AT 100 ML/HR AND ZINACEF AT 11.4 ML/HR. RT IJ CVL PATENT, DRESSING C/D/I. CVP, SONDRA, AND PA PRESSURE LINES LEVELED AND ZEROED WITH GOOD WAVEFORM. SEE FLOW SHEET, FOR COMPLETE ASSESSMENT. WILL CONTINUE TO MONITOR.
--- NOTE | 2018-11-17 19:30 | NUR ---
PATIENT FOLLOWING COMMANDS, RT AT BEDSIDE VENT SETTING CHANGED TO CPAP PER RT. WILL CONTINUE TO MONITOR.
--- NOTE | 2018-11-17 20:03 | NUR ---
AT BEDSIDE, UPDATE GIVEN. WILL CONTINUE TO MONITOR.
--- NOTE | 2018-11-17 20:40 | NUR ---
CALLED AND SPOKE TO DR. MCGOVERN, UPDATE GIVEN ON PATIENT'S CURRENT STATUS. NEW ORDERS RECEIVED, OK TO EXTUBATE, GIVE 20 MEQ KCL OVER 1 HR AND RECHECK NEXT POTASSIUM LEVEL WITH AM LABS.
--- NOTE | 2018-11-17 20:52 | NUR ---
PATIENT EXTUBATED TO 5 L NC. ORAL CARE PROVIDED. ICE CHIPS PROVIDED. TOLERATED WELL. AT BEDSIDE. WILL CONTINUE TO MONITOR.
--- NOTE | 2018-11-17 21:32 | NUR ---
SCHEDULED MEDS GIVEN, WATER PROVIDED.
--- NOTE | 2018-11-17 23:00 | NUR ---
REASSESSMENT COMPLETED PER FLOW SHEET, SEE FOR DETAILS. REPOSITIONED IN BED. WATER PROVIDED. TOLERATING CLEAR LIQUIDS WELL. NO DYSPHAGIA. WILL CONTINUE TO MONITOR.
--- NOTE | 2018-11-17 23:07 | NUR ---
C/O PAIN, PRN PERCOCET GIVEN, WATER PROVIDED. DENIES OTHER NEEDS.
[2018-11-18] VITALS (64 sets, daily range): BP systolic 105–148; BP diastolic 53–75
--- NOTE | 2018-11-18 01:56 | NUR ---
C/O PAIN, PRN MORPHINE GIVEN, DENIES OTHER NEEDS. WILL CONTINUE TO MONITOR.
--- NOTE | 2018-11-18 03:00 | NUR ---
REASSESSMENT COMPLETED PER FLOW SHEET, SEE FOR DETAILS. PULLING 500 X10 ON IS. COUGH NON-PRODUCTIVE. WILL CONTINUE TO MONITOR.
--- NOTE | 2018-11-18 05:00 | NUR ---
COMPLETE BED BATH GIVEN. COMPLETE BED LINEN CHANGE PROVIDED. MORALEZ CARE PROVIDED. SUBSTERNAL DRESSING CHANGED. TOLERATED ALL WELL.
[2018-11-18 06:25] LABS: HEMATOCRIT 30.1 % (42.0-54.0); HEMOGLOBIN 10.5 g/dL (13.5-17.5); MCH 29.6 pg (26.0-34.0); MCHC 34.9 g/dL (31.0-37.0); MCV 84.8 fL (80.0-100.0); MEAN PLATELET VOLUME 9.7 fL (7.4-10.4); PLATELET COUNT 95 10x3/uL (130-400); RBC 3.55 10x6/uL (4.20-6.10); WBC 20.1 10x3/uL (4.8-10.8)
[2018-11-18 06:31] LABS: ALBUMIN 2.7 g/dL (3.4-5.0); ANION GAP 12.9 mmol/L (8-16); BILIRUBIN - TOTAL 1.48 mg/dL (0.2-1.3); CALCIUM 7.6 mg/dL (8.5-10.1); CARBON DIOXIDE 24.3 mmol/L (21.0-32.0); CREATININE - SERUM 1.3 mg/dL (0.6-1.3); POTASSIUM - SERUM 4.2 mmol/L (3.5-5.1); PROTEIN - SERUM 5.4 g/dL (6.4-8.2)
--- NOTE | 2018-11-18 07:00 | NUR ---
RREC'D REPORT AND RESUMED CARE, SLEEPING, AROUSABLE TO VERBAL STIMULI, VSS, DENIES PAIN, O2 AT 5L, RIGHT IJ SWAN WITH CORDIS IN PLACE, PLASMYLITE, ZINACEF INFUSING, MIDSTERNAL AND SUB STERNAL DRESSINGS, IN PLACE, TPM WIRES IN PLACE, TPM NOT ON AT THIS TIME, ANTERIOR CHEST TUBES X2 IN USE, SERO SANGUINOUS DRAINGAG TO CONTAINER, MORALEZ TO GRAVITY WITH QUAN DRAINAGE TO CANISTER, TEDS/SCDS IN USE, IS TO 5OO, ASESSMENT COMPLETED PER FLOWSHEET, ORAL CARE AND SUCTION COMPLETED. CALL LIGHT IN REACH, NO NEEDS AT THIS TIME
--- NOTE | 2018-11-18 07:10 | NUR ---
ORAL CARE DONE WITH PERIDEX
--- NOTE | 2018-11-18 09:00 | NUR ---
MORNING MEDS GIVEN PER MAR FLOWSHEET, TOLERATED WITHOUT DIFFICULTY
[2018-11-18 09:14] LABS: PLATELET ESTIMATE DECREASED
--- NOTE | 2018-11-18 09:15 | NUR ---
SWAN FIOR CATH DC'D BY CARDIOLOGY NURSE: BRITTNEY WITH CATHETER INTACT, PER ORDER, SONDRA AND RIGHT AC PIV DC'D WITH CATHETERS INTACT, GAUZE DRESSINGS APPLIED TOLERATED WITHOUT DIFFICULTY
--- NOTE | 2018-11-18 10:40 | NUR ---
O2 TITRATED TO 3L NC BY RT, SAT 96%
--- NOTE | 2018-11-18 11:00 | NUR ---
SITTING UP IN BED, AAO, CONTIUES TO HAVE TACHYPNEA, 26 BPM, ASSESSMENCOMPLETED PER FLOWSHEET, NO NEEDS AT THIS TIME, CALL LIGHT IN REACH
--- NOTE | 2018-11-18 12:00 | NUR ---
SIGNIFICANT OTHER AT BEDSIDE, STATUS UPDATED, VOICES NO NEEDS A THIS TIME
--- NOTE | 2018-11-18 12:19 | OP ---
PATIENT NAME: SIGRID STOLL MEDICAL RECORD: [id number] :[birth year] LOCATION:[facility].CV04 ADMISSION DATE:11/17/18 SURGEON: STUART MGCOVERN MD DATE OF OPERATION: 11/17/2018 SURGEON: Stuart Mcgovern MD PINBALL MACHINE REPAIRER: Víctor Borges. OPERATION PERFORMED: Aortic valve replacement (21 mm pericardial bioprosthesis). PREOPERATIVE DIAGNOSES: Aortic stenosis and aortic insufficiency. POSTOPERATIVE DIAGNOSES: Aortic stenosis and aortic insufficiency. Congenitally bicuspid aortic valve. ANESTHESIA: General endotracheal anesthesia. ESTIMATED BLOOD LOSS: Total cardiopulmonary bypass with Cell Saver retransfusion. COMPLICATIONS: None. SPECIMENS: Aortic valve leaflets. CONDITION: Stable. DISPOSITION: CV ICU. COMPLICATIONS: None. OPERATIVE FINDINGS: 1. PA pressure elevated 80/42 under general anesthesia. Significantly less after aortic valve replacement. 2. Transesophageal echocardiography confirmed significant aortic insufficiency and aortic stenosis with 2 regurgitant AI jet each 0.8 cm in width and 1+ mitral regurgitation before valve replacement. No mitral regurgitation and no AI after aortic valve replacement. 3. Congenital bicuspid aortic valve with right nonfusion and irregular calcification at the anterior commissure. Replacement of the valve so that the post did not obstruct the right coronary artery. OPERATIVE INDICATION: Aortic stenosis, aortic insufficiency. DESCRIPTION OF PROCEDURE: The patient was brought to the operating suite. General anesthesia was obtained. The patient was prepped and draped. The median sternotomy incision was made, subcutaneous tissue was divided by electrocautery. Sternum was divided with a saw. The pericardium was opened. Heparin was given. The aorta was cannulated. Dual stage venous cannula was inserted, retrograde cardioplegia cannula was inserted. The patient was placed on cardiopulmonary bypass. The patient was cooled. Crossclamp was placed. Cardioplegia was given and the aortic root and then retrograde. The left ventricular vent was placed. Aortotomy was performed. Valve visualized. Calcified valve leaflets were removed. Thorough irrigation performed and all OPERATIVE REPORT [id number] SIGRID STOLL bits of loose debris were removed. The interrupted pledgeted valve sutures were placed from ventricular to aortic side. The valve was sized to 21 mm and a suture was placed through the sewing ring. Valve carefully lowered and placed sutures were tied. Inspecting the valve, there was no subvalvular occlusion and there was no evidence of perivalvular leak. The patient was rewarmed. Aortotomy was closed. Left ventricular apex was de-aired, cross clamp was removed. The aortic root was de-aired through the cardioplegia site and this was then oversewn. The left ventricular vent was removed. Retrograde cardioplegic cannula was removed and oversewn and the patient was fully rewarmed, weaned from cardiopulmonary bypass in a sinus rhythm. The patient was decannulated. The cannula sites were oversewn. Protamine was given. Thorough irrigation was undertaken. Hemostasis was ensured. Drains were placed in the mediastinum, one with the tip in the left pleural cavity and atrial and ventricular pacing wires were placed. Pericardial fat was loosely reapproximated. Sternum was closed with wires. Fascia was closed. Subcutaneous tissues were closed. Skin was closed. Dermabond was placed. The needle and sponge count was reported as correct and the patient was taken to ICU in stable condition. TRANSINT:[id number] Voice Confirmation ID: [id number] DOCUMENT ID: [id number] STUART MCGOVERN MD at 1219 CC: MIKE JEROME MD and LESLEY GORDON [id number] DICTATION DATE: 11/17/18 1154 ROVING TELLER: 11/17/18 1212 ADM IN [facility] [address] [id number]
--- NOTE | 2018-11-18 12:58 | NUR ---
OOB TO CHAIR WITH PHYSICAL THERAPY ASSIST, TOLERATED WITH DISCOMFORT IN CHEST, C/O PAIN 08/28, PERCOCET 10 GIVEN PER MAR FLOWSHEET
--- NOTE | 2018-11-18 15:00 | NUR ---
RESTING UP IN CHAIR, WITH TACHYPNEA, SHALLLO BREATHS, IS 600, NO OTHER ACUTE CHANGES FROM PREVIOUS
--- NOTE | 2018-11-18 16:30 | NUR ---
SIGNIFICANT OTHE AT BEDSIDE, STATUS UPDATE, VOICES NO NEEDS AT THIS TIME
--- NOTE | 2018-11-18 17:00 | NUR ---
CL DINNER TRAY TO BEDSIDE, INDEPENDENT WITH SET UP AND EATING
--- NOTE | 2018-11-18 19:25 | NUR ---
PC TO MS. SUÁREZ PER REQUEST TO BRING PATIENTS CELL PHONE LEFT MESSAGE
--- NOTE | 2018-11-18 21:00 | NUR ---
1900 REPORT RECEIVED CARE ASSUMED. ASSESSMENT DONE SEE FLOW SHEET. INCREASE IN RESPIRATIONS NOTED. NO SIGNS OF ACUTE DISTRESS NOTED. IS 750. WILL CONTINUE TO MONITOR. 2100 MEDS GIVEN PER MAR. NO SINGS OF ACUTE DISTRESS NOTED WILL CONTINUE TO MONITOR.
--- NOTE | 2018-11-18 22:17 | NUR ---
PT AMBULATED FROM CHAIR TO BED. MODERATE ASSISTANCE PROVIDED. VSS. WILL CONTINUE TO MONITOR.
--- NOTE | 2018-11-18 23:00 | NUR ---
REASSESSMENT DONE SEE FLOW SHEET. ARRYTHMIA NOTED. STAT MAG AND K DRAWN. WILL CONTINUE TO MONITOR.
[2018-11-19] VITALS (25 sets, daily range): BP systolic 96–188; BP diastolic 56–83; Ht 167.6 cm; Wt 88.0 kg
[2018-11-19 00:03] LABS: POTASSIUM - SERUM 4.2 mmol/L (3.5-5.1)
--- NOTE | 2018-11-19 00:21 | NUR ---
DR MCGOVERN INFORMED OF PT STATUS NEW ORDERS RECEIVED SEE JUN. WILL CONTINUE TO MONITOR.
--- NOTE | 2018-11-19 03:00 | NUR ---
0100 WATER PROVIDED PER PT REQUEST. 0300 REASSESSMENT DONE SEE FLWO SHEET. NO SING SOF ACUTE DISTRESS NOTED WILL CONTINUE TO MONITOR.
--- NOTE | 2018-11-19 05:00 | NUR ---
IO COLLECTED DAILY WEIGHT COLLECTED. CHG BATH MORALEZ CARE. VSS.
[2018-11-19 06:26] LABS: HEMATOCRIT 29.3 % (42.0-54.0); HEMOGLOBIN 10.1 g/dL (13.5-17.5); MCH 29.4 pg (26.0-34.0); MCHC 34.5 g/dL (31.0-37.0); MCV 85.2 fL (80.0-100.0); MEAN PLATELET VOLUME 10.1 fL (7.4-10.4); RBC 3.44 10x6/uL (4.20-6.10); RDW 14.2 % (11.5-14.5)
[2018-11-19 06:59] LABS: ALBUMIN 2.4 g/dL (3.4-5.0); ANION GAP 11.5 mmol/L (8-16); BILIRUBIN - TOTAL 0.71 mg/dL (0.2-1.3); CALCIUM 7.9 mg/dL (8.5-10.1); CARBON DIOXIDE 24.5 mmol/L (21.0-32.0); CREATININE - SERUM 1.4 mg/dL (0.6-1.3); PROTEIN - SERUM 5.7 g/dL (6.4-8.2)
--- NOTE | 2018-11-19 09:00 | NUR ---
BTB FROM CHAIR, TOLERATED TRANSFER WITH MINIMAL DYSPNEA, ANTERIOR CT DC'D BY MADELINE AND NAOMY DC'D BY JANINA WITHOUT DIFFICULTY
--- NOTE | 2018-11-19 10:20 | NUR ---
OOB TO BATHROOM WITH ASSIST, TOLERATED TRANSFER WITH MINIMAL DYSPNEA, VOIDED AND PASSING GAS
--- NOTE | 2018-11-19 10:32 | NUR ---
AMBULATED WITH PHYSICAL THERAPY 250 FEET TOLERATED WITHOUT DIFFICULTY
--- NOTE | 2018-11-19 11:03 | NUR ---
AMNIODERONE GTT DC'D PER ORDER, UP IN CHAIR WATCHING TV, DENIES PAIN UNLESS MOVING AROUND, NO ACUTE CHANGE FROM PREVIOUS, CALL LIGHT IN REACH, NO NEEDS AT THIS TIME
--- NOTE | 2018-11-19 12:05 | NUR ---
LUNCH TRAY TO BEDSIDE, INDEPENDENT WITH SET UPA ND EATING
--- NOTE | 2018-11-19 13:10 | NUR ---
AMBULATED 500 FEET WITHOUT DIFFICULTY ASSSITED BY PHYSICAL THERAPY
--- NOTE | 2018-11-19 19:00 | NUR ---
REPORT RECEIVED, SHIFT ASSESSMENT COMPLETE SEE FLOW SHEET, PT AAOx4 DENIES PAIN OR NEEDS, RESTING COMFORTABLY IN BED, VSS, NSR ON CM, REPOSITIONED IN BED, WILL CONTINUE TO MONITOR
--- NOTE | 2018-11-19 23:00 | NUR ---
REASSESSMENT COMPLETE PER FLOW SHEET, NO ACUTE CHANGES OR S/S OF DISTRESS NOTED, VSS, REPOSITIONED IN BED, WILL CONTINUE TO MONITOR
[2018-11-20] VITALS (24 sets, daily range): BP systolic 109–150; BP diastolic 65–84
--- NOTE | 2018-11-20 03:00 | NUR ---
REASSESSMENT COMPLETE SEE FLOW SHEET, COMPLETE LINEN AND GOWN CHANGE WITH BATH, PT AMBULATED OOB AND BACK IN BED WITH MINIMAL ASSIST, I/S COMPLETED, PT HAS WEAK EFFORT WITH COUGHING, RT AT BEDSIDE TOR RESP Tx, VSS, PT DENIES NEEDS, WILL CONTINUE TO MONITOR
[2018-11-20 06:07] LABS: HEMATOCRIT 28.5 % (42.0-54.0); HEMOGLOBIN 9.8 g/dL (13.5-17.5); MCH 29.1 pg (26.0-34.0); MCHC 34.4 g/dL (31.0-37.0); MCV 84.6 fL (80.0-100.0); MEAN PLATELET VOLUME 10.3 fL (7.4-10.4); RBC 3.37 10x6/uL (4.20-6.10); RDW 14.2 % (11.5-14.5); WBC 20.1 10x3/uL (4.8-10.8)
[2018-11-20 06:19] LABS: ALBUMIN 2.4 g/dL (3.4-5.0); ANION GAP 11.4 mmol/L (8-16); BILIRUBIN - TOTAL 0.74 mg/dL (0.2-1.3); CALCIUM 8.2 mg/dL (8.5-10.1); CARBON DIOXIDE 26.7 mmol/L (21.0-32.0); CREATININE - SERUM 1.3 mg/dL (0.6-1.3); POTASSIUM - SERUM 4.1 mmol/L (3.5-5.1)
--- NOTE | 2018-11-20 07:00 | NUR ---
UP IN CHAIR WITH NO SIGNS OF DISTRESS, VSS, ASSESSMENT COMPLETED PER FLOWSHEET, ENCOURAGED IS AT 750 MMHG PRESSURE AT THIS TIME, CALL LIGHT IN REACH, NO NEEDS AT THIS TIME
--- NOTE | 2018-11-20 09:00 | NUR ---
MORNING MEDS GIVEN PER JUN FLOWSHEET
--- NOTE | 2018-11-20 11:10 | NUR ---
AMBULATED 1000FT WITH STAND BY ASSIST FROM PHYSICAL THERAPY, NO OTHER ACUTE CHANGE FROM PREVIOUS ASSESSMENT
--- NOTE | 2018-11-20 12:00 | NUR ---
SIGNIFICANT OTHER AT BEDSIDE, STATUS UPDATED, VOICES NO NEEDS AT THIS TIME
--- NOTE | 2018-11-20 12:37 | NUR ---
DR MCGOVERN AT BEDSIDE, COUNSELED WITH PATIENT, NEW ORDER GIVEN
[2018-11-20] MEDS ORDERED: PERCOCET 5-3251 TAB PO (12:43)
--- NOTE | 2018-11-20 15:00 | NUR ---
ATTEMPTS X3 FOR PIV, PT TOLERATED WITHOUT DIFFICULTY WILL LEAVE IN CVL FOR NOW.
--- NOTE | 2018-11-20 16:45 | NUR ---
DINNER TRAY TO BEDSIDE, INDEPENDENT WITH SET UP AND EATING
--- NOTE | 2018-11-20 18:30 | NUR ---
CONTINUES TO SIT UP IN CHAIR NO SIGN OF DISTRESS, VSS, CALL LIGHT IN REACH, VOICES NO NEEDS AT THIS TIME
[2018-11-21] VITALS (11 sets, daily range): BP systolic 110–131; BP diastolic 59–79
[2018-11-21 04:14] LABS: HEMATOCRIT 26.5 % (42.0-54.0); HEMOGLOBIN 9.1 g/dL (13.5-17.5); MCH 29.2 pg (26.0-34.0); MCHC 34.3 g/dL (31.0-37.0); MCV 84.9 fL (80.0-100.0); MEAN PLATELET VOLUME 9.9 fL (7.4-10.4); RBC 3.12 10x6/uL (4.20-6.10); RDW 14.1 % (11.5-14.5)
[2018-11-21 04:28] LABS: ALBUMIN 2.3 g/dL (3.4-5.0); ANION GAP 11.7 mmol/L (8-16); BILIRUBIN - TOTAL 0.68 mg/dL (0.2-1.3); CALCIUM 7.8 mg/dL (8.5-10.1); CARBON DIOXIDE 27.4 mmol/L (21.0-32.0); CREATININE - SERUM 1.1 mg/dL (0.6-1.3); POTASSIUM - SERUM 4.1 mmol/L (3.5-5.1); PROTEIN - SERUM 5.8 g/dL (6.4-8.2)
[2018-11-21] MEDS ORDERED: AMIODARONE HCL200 MG PO (10:07)
[2018-11-21] MEDS ORDERED: COLACE100 MG PO (10:10)
[2018-11-21] MEDS ORDERED: PERCOCET 10-321 EAC1 PO (10:11)
--- NOTE | 2018-11-21 12:44 | NUR ---
1000: DR. OSUNA HERE. DISCHARGE ORDERS REC'D. 1100: TEMP PACING WIRES DC'D BY RAMYA HOPKINS RN 1200: HERE. SALINE LOCK IN R WRIST DC'D. DISCHARGE INSTRUCTIONS REVIEWED WITH AND PATIENT. 1215: DISCHARGED HOME. ESCORTED TO CAR VIA WHEELCHAIR.
--- NOTE | 2018-11-23 18:36 | MORECARE ---
CASE MANAGEMENT DISCHARGE SUMMARY PATIENT: SIGRID STOLL UNIT: [id number] ADM DATE: 11/17/18 AGE: 63 : 59 SEX: M ROOM/BED: D.[facility] AUTHOR: GINODOC PHYSICIAN: REFERRING PHYSICIAN: DEANGELO MCGOVERN MD DATE OF SERVICE: 11/23/18 Discharge Plan Patient Name: SIGRID STOLL Facility: [facility]:[place] : 1955 Planned Disposition: Home Anticipated Discharge Date: Discharge Date: 11/21/2018 Expected LOS: Initial Reviewer: [email or web address] Initial Review Date: 11/17/2018 Generated: 11/23/18 7:36 pm DCP- Discharge Planning Updated by [email or web address]: Soledad Garcia on 11/17/18 3:[address] Patient Name: SIGRID STOLL Admission Status: Urgent Accout number: [id number] Admission Date: 11-17-2018 : 1955 Admission Diagnosis: Attending: DEANGELO MCGOVERN Current LOS: 1 Anticipated DC Date: Planned Disposition: Home Primary Insurance: MEDICAID [place] Discharge Planning Comments: CM met with Dulce Garcia patient's significant other at bedside after explaining CM role and obtaining verbal consent. Patient is currently sedated and on ventilator. Dulce states that they live together at their home and plans to return there upon discharge. Dulce feels this would be a safe discharge. CM discussed availability / needs of home health and medical equipment. Dulce denies any discharge needs at this time. Dulce states she will drive him home upon discharge. CM will continue to follow and assist as needed with discharge planning / needs. Railroad Commissioner: Soledad Garcia DCPIA - Discharge Planning Initial Assessment Updated by [email or web address]: Soledad Garcia on 11/17/18 4:42 pm * Is the patient Alert and Oriented? No * How many steps to enter\exit or inside your home? * PCP FRANCHESKA HERNANDES * [facility] * Preadmission Environment Home with Family * ADLs Independent * Equipment None * List name and contact numbers for known caregivers / representatives who currently or will assist patient after discharge: Dory Garcia - partner - [phone] * Verbal permission to speak to the caregivers and representatives has been obtained from the patient. N/A * Community resources currently utilized None * Additional services required to return to the preadmission environment? No * Can the patient safely return to the preadmission environment? Yes * Has this patient been hospitalized within the prior 30 days at any hospital? No Last DP export: 11/17/18 3:50 p Patient Name: SIGRID STOLL Page 77292 at 1836 All edits/amendments must be made on the electronic document DICTATION DATE: 11/23/181835 MINI LAB OPERATOR: DORA 11/23/181835 RPT#: [id number] DC DATE:11/21/18 STATUS: DIS IN [facility] [address] [place] [address] END OF REPORT
--- NOTE | 2018-11-24 09:52 | TEE ---
PATIENT:SIGRID STOLL GENE MEDICAL RECORD: [id number] LOCATION:[place] [address] AGE OF PATIENT: 63 ADMISSION DATE: 11/17/18 SEX: M REFERRING PHYSICIAN: INTERPRETING PHYSICIAN: LESLEY MOHR MD TRANSESOPHAGEAL ECHOCARDIOGRAM Date: 11/17/18 SULEIMAN CHARGE Y INDICATIONS: AVR PREMEDICATIONS: PATIENT'S RESPONSE PROCEDURE DOPPLER MEASUREMENTS: LVIT LA 5.0 PA RA LVOT RVOT Asc. Ao AV Gradient Peak 135 AV Mean AV Area MV Gradient Peak MV Mean MV Area INTERPRETATION: Doppler: 2-D: COLOR FLOW DOPPLER NORMAL SALINE STUDY: MISCELLANOUS: DIAGNOSIS: PLAN: Mortuary Operations Manager:1 Dr. Mohr Manager Education: Jessica VASQUEZ COMMENTS: DATE OF SERVICE: 11/17/2018 PROCEDURE: Transesophageal echo evaluation of valvular structures during aortic valve replacement. FINDINGS: 1. Left ventricular chamber size is within normal limits. Left ventricular systolic function is normal. Overall ejection fraction estimated at 60%. 2. Left atrium, right atrium, and right ventricular chamber sizes are within TRANSESOPHAGEAL ECHOCARDIOGRAM REPORT [id number] SIGRID STOLL normal limits. 3. Valvular structures: Aortic valve has significant aortic stenosis and calcification, this is definitely bicuspid valve, this is not a new finding. The patient is scheduled for aortic valve replacement. The remaining valvular structures have normal structure and motion. 4. Doppler interrogation elsewise reveals mild mitral regurgitation, [id number] aortic insufficiency. No other valvular insufficiency or stenosis. 5. No evidence of pericardial effusion or left ventricular thrombus. TRANSINT:[id number] Voice Confirmation ID: [id number] DOCUMENT ID: [id number] at 0952 CC: [id number] DICTATION DATE: 11/17/181932 PLASTIC MIXER: 11/18/18 0517 DIS IN 11/21/18 [facility] [address] [place] [address]
== END 2018-11-21 12:20 | disposition home or self-care (01) | DRG 221 ==
LOC: D.SDCHOLD 07:00 → D.CVICU 11-17 05:00 → D.SDCHOLD 11-17 05:00 → D.CVICU 11-17 09:12
PROVIDERS: ADMIT Thoracic Surgery (Cardiothoracic Vascular Surgery); ATTEND Thoracic Surgery (Cardiothoracic Vascular Surgery)
PROC: 5A1221Z Performance of Cardiac Output, Continuous (ICD-10-PCS; 2018-11-17)
PROC: B24BZZ4 Ultrasonography of Heart with Aorta, Transesophageal (ICD-10-PCS; 2018-11-17)
PROC: 02RF0JZ Replacement of Aortic Valve with Synthetic Substitute, Open Approach (ICD-10-PCS; principal; 2018-11-17 07:30)
DX: I35.0 Nonrheumatic aortic (valve) stenosis (principal); I10 Essential (primary) hypertension; E78.5 Hyperlipidemia, unspecified; R07.9 Chest pain, unspecified; I35.1 Nonrheumatic aortic (valve) insufficiency; I48.91 Unspecified atrial fibrillation

== ENCOUNTER → 2018-11-13 07:47 | Outpatient (CLI) | payer MEDICAID ==
[2018-11-06 09:00] VITALS: BMI 29.6
[~2018-11-13 07:47] MED LIST changes: +AMIODARONE HCL200 MG PO; +COLACE100 MG PO; +PERCOCET 10-321 EAC1 PO; +PERCOCET 5-3251 TAB PO; +PROTONIX40 MG PO; +TESSALON PERLE100 MG PO
== END | disposition home or self-care (01) ==
LOC: D.CT 11-12 14:30
PROVIDERS: ATTEND Thoracic Surgery (Cardiothoracic Vascular Surgery)
DX: I65.23 Occlusion and stenosis of bilateral carotid arteries (principal); Z86.73 Personal history of transient ischemic attack (TIA), and cerebral infarction without residual deficits

== ENCOUNTER → 2018-11-16 07:29 | Outpatient (CLI) | payer MEDICAID ==
[2018-11-06 09:00] VITALS: BMI 29.6
[~2018-11-16 07:29] MED LIST changes: -PROTONIX40 MG PO; -TESSALON PERLE100 MG PO
== END | disposition home or self-care (01) ==
LOC: D.CT 07:29
PROVIDERS: ATTEND Thoracic Surgery (Cardiothoracic Vascular Surgery)
DX: I65.23 Occlusion and stenosis of bilateral carotid arteries (principal)

== ENCOUNTER → 2018-12-09 10:56 | Outpatient (CLI) | payer MEDICAID ==
[2018-11-19 12:38] VITALS: BMI 33.4
[~2018-12-09 10:56] MED LIST changes: +PROTONIX40 MG PO; +TESSALON PERLE100 MG PO
[2018-12-09 11:29] LABS: HEMATOCRIT 34.5 % (42.0-54.0); HEMOGLOBIN 11.6 g/dL (13.5-17.5); MCH 28.2 pg (26.0-34.0); MCHC 33.6 g/dL (31.0-37.0); MCV 83.7 fL (80.0-100.0); MEAN PLATELET VOLUME 8.9 fL (7.4-10.4); RBC 4.12 10x6/uL (4.20-6.10); RDW 13.7 % (11.5-14.5); WBC 6.9 10x3/uL (4.8-10.8)
[2018-12-09 11:45] LABS: ALBUMIN 3.5 g/dL (3.4-5.0); ANION GAP 10.9 mmol/L (8-16); BILIRUBIN - TOTAL 0.53 mg/dL (0.2-1.3); CALCIUM 9.7 mg/dL (8.5-10.1); CARBON DIOXIDE 28.3 mmol/L (21.0-32.0); CREATININE - SERUM 1.4 mg/dL (0.6-1.3); POTASSIUM - SERUM 4.2 mmol/L (3.5-5.1); PROTEIN - SERUM 7.9 g/dL (6.4-8.2)
== END | disposition home or self-care (01) ==
LOC: D.LAB 10:56
PROVIDERS: ATTEND Thoracic Surgery (Cardiothoracic Vascular Surgery)
DX: D64.9 Anemia, unspecified (principal); J90 Pleural effusion, not elsewhere classified

== ENCOUNTER 2019-01-22 17:58 | Inpatient (IN) | payer MEDICAID ==
[~2019-01-22] VITALS: Ht 167.6 cm; Wt 81.6 kg
[~2019-01-22 17:58] MED LIST changes: -PROTONIX40 MG PO; -TESSALON PERLE100 MG PO
[2019-01-22 18:36] LABS: BASOPHILS 0.2 % (0-2); EOSINOPHILS 0.9 % (0-7); HEMATOCRIT 34.5 % (42.0-54.0); HEMOGLOBIN 11.3 g/dL (13.5-17.5); IMMATURE GRANULOCYTES 0.3 % (0-5); LYMPHOCYTES 11.4 % (15-50); MCH 26.7 pg (26.0-34.0); MCHC 32.8 g/dL (31.0-37.0); MCV 81.6 fL (80.0-100.0); MEAN PLATELET VOLUME 8.8 fL (7.4-10.4); MONOCYTES 8.3 % (2-11); NEUTROPHILS 78.9 % (40-80); PLATELET COUNT 324 10x3/uL (130-400); RBC 4.23 10x6/uL (4.20-6.10); RDW 14.3 % (11.5-14.5); WBC 10.9 10x3/uL (4.8-10.8)
[2019-01-22 18:54] LABS: APTT 31.8 SECONDS (22.8-39.4); INR 1.24 (0.85-1.17)
[2019-01-22 18:55] LABS: ALBUMIN 2.8 g/dL (3.4-5.0); ALKALINE PHOSPHATASE 203 U/L (46-116); ALT (SGPT) 21 U/L (10-68); CALC OSMOLALITY 280 mosm/kg (275-300); CALCIUM 8.6 mg/dL (8.5-10.1); CARBON DIOXIDE 27.6 mmol/L (21.0-32.0); CHLORIDE - SERUM 104 mmol/L (98-107); CREATININE - SERUM 1.2 mg/dL (0.6-1.3); GLUCOSE 135 mg/dL (74-106); POTASSIUM - SERUM 3.6 mmol/L (3.5-5.1); PROTEIN - SERUM 7.7 g/dL (6.4-8.2); SODIUM 139 mmol/L (136-145); UREA NITROGEN 14 mg/dL (7-18); eGFR NON AFRICAN AMERICAN 65 mL/min (90-120)
[2019-01-22 19:08] LABS: CKMB 0.4 U/L (0.0-3.6); CREATINE KINASE 70 UL (21-232); MAGNESIUM - SERUM 1.7 mg/dL (1.8-2.4)
[2019-01-22 19:09] LABS: TROPONIN-I < 0.017 ng/mL (0.000-0.060)
--- NOTE | 2019-01-22 22:15 | NUR ---
PT ARRIVED TO M3 WITH HOSPITAL STAFF AND FAMILY FROM ER. PT ALER AND ORIENTED X3.
[2019-01-22 22:25] VITALS: BP 151/78; BMI 29.1
--- NOTE | 2019-01-22 23:46 | NUR ---
PUT HEART MONITOR FOR PT.
--- NOTE | 2019-01-22 23:52 | NUR ---
MIDNIGHT VITAL ASSESSED, RESULT SEE FLOW SHEET.
[2019-01-23 00:13] VITALS: BP 126/74
--- NOTE | 2019-01-23 02:09 | NUR ---
I have reviewed this patient and I concur with the Shift Assessment completed by the Licensed Practical Nurse today this shift.
--- NOTE | 2019-01-23 03:04 | NUR ---
REST IN BED. EYE CLOSE. CALL LIGHT IN REACH.
[2019-01-23 04:35] VITALS: BP 115/71
[2019-01-23 05:59] LABS: BASOPHILS 0.3 % (0-2); EOSINOPHILS 1.8 % (0-7); HEMATOCRIT 30.6 % (42.0-54.0); IMMATURE GRANULOCYTES 0.3 % (0-5); LYMPHOCYTES 18.3 % (15-50); MCH 26.6 pg (26.0-34.0); MCHC 32.7 g/dL (31.0-37.0); MCV 81.4 fL (80.0-100.0); MEAN PLATELET VOLUME 8.6 fL (7.4-10.4); MONOCYTES 14.9 % (2-11); NEUTROPHILS 64.4 % (40-80); PLATELET COUNT 298 10x3/uL (130-400); RBC 3.76 10x6/uL (4.20-6.10); RDW 14.4 % (11.5-14.5)
[2019-01-23 06:02] LABS: WBC 7.9 10x3/uL (4.8-10.8)
[2019-01-23 06:35] LABS: CALC OSMOLALITY 279 mosm/kg (275-300); CARBON DIOXIDE 27.3 mmol/L (21.0-32.0); CHLORIDE - SERUM 105 mmol/L (98-107); GLUCOSE 118 mg/dL (74-106); MAGNESIUM - SERUM 1.7 mg/dL (1.8-2.4); PHOSPHOROUS 2.8 mg/dL (2.5-4.9); POTASSIUM - SERUM 3.3 mmol/L (3.5-5.1); PRO BNP 1492 pg/mL (0-125); SODIUM 140 mmol/L (136-145); UREA NITROGEN 12 mg/dL (7-18); eGFR NON AFRICAN AMERICAN 81 mL/min (90-120)
--- NOTE | 2019-01-23 07:10 | NUR ---
REPORT RECIEVED FROM PLUNGER SHOVEL OPERATOR AND PATIENT CARE ASSUMED. PATIENT LAYING IN BED ON BACK WITH EYES CLOSED AND BREATHING EVENLY. WILL CONTINUE WITH PLAN OF CARE. SR UP X 2 BED IN LOW POSITION AND CALL LIGHT IN REACH.
[2019-01-23 07:41] VITALS: BP 115/72
--- NOTE | 2019-01-23 10:52 | NUR ---
PATIENT SITTING UP IN BED VISITING WITH AT BS. PROVIDED PATIENT WITH MORE ICE WATER REQEUSTED. PATIENT IS STABLE AND DENIES ANY OTHER NEEDS OR PAIN. ENCOURAGED PATIENT TO USE INCENTIVE SPIROMETER AND FLUTTER RIGOBERTO. WILL CONTINUE TO MONITOR. SR UP X 2 BED IN LOW POSITION AND CALL LIGHT IN REACH.
[2019-01-23 11:07] LABS: APPEARANCE CLEAR (CLEAR); BILIRUBIN NEGATIVE (NEGATIVE); COLOR YELLOW (YELLOW); GLUCOSE NEGATIVE (NEGATIVE); KETONE NEGATIVE (NEGATIVE); NITRITE NEGATIVE (NEGATIVE); PROTEIN NEGATIVE (NEGATIVE); SPECIFIC GRAVITY 1.005 (1.005-1.020); UROBILINOGEN NORMAL (NORMAL)
[2019-01-23 12:19] VITALS: BP 103/70
--- NOTE | 2019-01-23 13:36 | NUR ---
PATIENT RESTING QUIETLY IN BED. AT BS. WILL CONTINUE TO MONITOR. SR UP X 2 BED IN LOW POSTION AND CALL IN REACH.
--- NOTE | 2019-01-23 15:34 | NUR ---
DR ESTRADA ON UNIT. NEW ORDER RECEIVED FOR CONSULT CARDIOLOGY FOR ANGINA. SPOKE WITH DR CLARKE AND GAVE HIM CONSULT.
[2019-01-23 16:17] VITALS: BP 124/65
[2019-01-23 19:24] VITALS: BP 132/73
--- NOTE | 2019-01-23 19:39 | NUR ---
RECIEVED BEDSIDE REPORT. UP IN BED WITH SPOUSE AT BEDSIDE. ALERT AND ORIENTED X4. UP AD BERNARDO TO B/R. HAS A NONPRODUCTIVE COUGH. LEFT LUNG SOUNDS RONCHI IN ALL SAENZ. RIGHT LUNG SOUNDS CTA.IV TO RIGHT FA SL.. TELEMETRY IN PLACE. DENIES ANY NEEDS AT THIS TIME. CONT TO REFUSE SCD'S.
[2019-01-24 00:44] VITALS: BP 124/69
[2019-01-24 04:45] VITALS: BP 127/75
[2019-01-24 06:13] LABS: BASOPHILS 0.2 % (0-2); EOSINOPHILS 3.3 % (0-7); HEMATOCRIT 32.1 % (42.0-54.0); HEMOGLOBIN 10.5 g/dL (13.5-17.5); IMMATURE GRANULOCYTES 0.5 % (0-5); LYMPHOCYTES 12.6 % (15-50); MCH 26.4 pg (26.0-34.0); MCHC 32.7 g/dL (31.0-37.0); MCV 80.9 fL (80.0-100.0); MEAN PLATELET VOLUME 8.7 fL (7.4-10.4); MONOCYTES 9.3 % (2-11); NEUTROPHILS 74.1 % (40-80); PLATELET COUNT 354 10x3/uL (130-400); RBC 3.97 10x6/uL (4.20-6.10)
[2019-01-24 06:19] LABS: WBC 10.2 10x3/uL (4.8-10.8)
[2019-01-24 06:28] LABS: ANION GAP 10.9 mmol/L (8-16); CALCIUM 8.5 mg/dL (8.5-10.1); CREATININE - SERUM 1.1 mg/dL (0.6-1.3); MAGNESIUM - SERUM 1.8 mg/dL (1.8-2.4); PHOSPHOROUS 2.8 mg/dL (2.5-4.9); POTASSIUM - SERUM 3.9 mmol/L (3.5-5.1)
--- NOTE | 2019-01-24 08:25 | NUR ---
PT RESTING IN BED. EATING BREAKFAST. NO S/S OF ACUTE DISTRESS. CL IN PLACE.
[2019-01-24 09:10] VITALS: BP 117/73
[2019-01-24 11:48] VITALS: BP 129/72
[2019-01-24 16:31] VITALS: BP 147/79
--- NOTE | 2019-01-24 18:28 | NUR ---
PT SITTING UP IN BED WATCHING FOOTBALL. NO S/S OF ACUTE DISTRESS. CL IN PLACE.
[2019-01-24 20:27] VITALS: BP 138/81
[2019-01-25 01:07] VITALS: BP 124/79
[2019-01-25 04:20] VITALS: BP 136/73
[2019-01-25 06:20] LABS: BASOPHILS 0.2 % (0-2); EOSINOPHILS 2.9 % (0-7); HEMATOCRIT 33.8 % (42.0-54.0); HEMOGLOBIN 11.1 g/dL (13.5-17.5); IMMATURE GRANULOCYTES 0.5 % (0-5); LYMPHOCYTES 17.4 % (15-50); MCH 26.4 pg (26.0-34.0); MCHC 32.8 g/dL (31.0-37.0); MCV 80.3 fL (80.0-100.0); MEAN PLATELET VOLUME 8.7 fL (7.4-10.4); MONOCYTES 10.1 % (2-11); NEUTROPHILS 68.9 % (40-80); PLATELET COUNT 392 10x3/uL (130-400); RBC 4.21 10x6/uL (4.20-6.10); RDW 14.3 % (11.5-14.5); WBC 9.2 10x3/uL (4.8-10.8)
[2019-01-25 06:40] LABS: CALCIUM 8.6 mg/dL (8.5-10.1); CARBON DIOXIDE 24.9 mmol/L (21.0-32.0); CREATININE - SERUM 1.1 mg/dL (0.6-1.3); MAGNESIUM - SERUM 1.7 mg/dL (1.8-2.4); PHOSPHOROUS 3.1 mg/dL (2.5-4.9); POTASSIUM - SERUM 3.9 mmol/L (3.5-5.1)
--- NOTE | 2019-01-25 07:10 | NUR ---
PATIENT LAYING IN BED AWAKE, ALERT AND ORIENTED X 4. PATIENT DENIES ANY NEEDS OR PAIN. PATIENT IS STABLE AND VSS. WILL CONTINUE WITH PLAN OF CARE. SR UP X 2 BED IN LOW POSITION AND CALL LIGHT IN REACH.
[2019-01-25 08:00] VITALS: BP 151/73
--- NOTE | 2019-01-25 10:00 | NUR ---
ENCOURAGED PATIENT TO USE INCENTIVE SPIROMETER AND AMBULATE ON UNIT. PATIENT AGREED AND UP AMBULATING IN HALLWAY NOW. PATIENT TOLERATING WELL. AT BS. WILL CONTINUE WITH PLAN OF CARE.
--- NOTE | 2019-01-25 11:12 | MORECARE ---
CASE MANAGEMENT DISCHARGE SUMMARY PATIENT: SIGRID STOLL GENE UNIT: [id number] ADM DATE: 01/22/19 AGE: 63 : 59 SEX: M ROOM/BED: D.1211 AUTHOR: SUSHIL CHRISTIAN PHYSICIAN: REFERRING PHYSICIAN: KIRBY FARIAS MD DATE OF SERVICE: 01/25/19 Discharge Plan Patient Name: SIGRID STOLL Facility: [facility]:[place] : 1955 Planned Disposition: Home Anticipated Discharge Date: Discharge Date: Expected LOS: Initial Reviewer: [email or web address] Initial Review Date: 01/25/2019 Generated: 01/25/19 12:12 pm Comments DCP- Discharge Planning Updated by [email or web address]: Deedee Barroso on 01/25/19 10:[address] Patient Name: SIGRID STOLL Admission Status: ER Accout number: [id number] Admission Date: 01-22-2019 : 1955 Admission Diagnosis:PNEUMONIA, UNSPECIFIED ORGANISM Attending: KIRBY FARIAS Current LOS: 3 Anticipated DC Date: Planned Disposition: Home Primary Insurance: MEDICAID [place] Discharge Planning Comments: CM MET WITH PATIENT ABOUT DC PLANNING/NEEDS. STATES IN [place] AT HOME AND PLANS TO DC TO HOME WITH FAMILY. DENIES NEED FOR HH, REHAB, OR EQUIPMENT. CM WILL FOLLOW AND ASSIST. History Professor: Deedee Barroso DCPIA - Discharge Planning Initial Assessment Updated by [email or web address]: Deedee Barroso on 01/25/19 11:10 am * Is the patient Alert and Oriented? Yes * PCP ELVIN * Pharmacy [facility] * Preadmission Environment Home with Family * ADLs Independent * Equipment None * List name and contact numbers for known caregivers / representatives who currently or will assist patient after discharge: PAULO ANGELA, * Community resources currently utilized None * Additional services required to return to the preadmission environment? No * Can the patient safely return to the preadmission environment? Yes * Has this patient been hospitalized within the prior 30 days at any hospital? No Patient Name: SIGRID STOLL Page 32215 at 1112 All edits/amendments must be made on the electronic document DICTATION DATE: 01/25/191111 DENTAL TECH: DORA 01/25/191111 RPT#: [id number] DC DATE: STATUS: ADM IN [facility] [address] [place] [address] END OF REPORT
--- NOTE | 2019-01-25 16:00 | NUR ---
PATIENT AMBULATED IN HALLWAY NOW SITTING UP IN BS CHAIR. PATIENT DENIES ANY NEEDS OR PAIN. WILL CONTINUE TO MONITOR. CALL LIGHT IN REACH.
[2019-01-25 19:12] VITALS: BP 132/72
--- NOTE | 2019-01-25 19:39 | NUR ---
EVENING ROUNDS COMPLETED. VSS, AAOX3, NO S/S OF DISTRESS. PT SITTING ON CHAIR @ BEDSIDE, STATES HE IS MORE COMFORTABLE THAT WAY. TELE ON, PT 78 NS AT THIS TIME. PT DENIES ANY FURTHER NEEDS AT THIS TIME. WILL CTM.
[2019-01-25 23:31] VITALS: BP 126/74
[2019-01-26 03:49] VITALS: BP 123/67
[2019-01-26 06:48] LABS: BASOPHILS 0.2 % (0-2); EOSINOPHILS 2.7 % (0-7); HEMATOCRIT 36.4 % (42.0-54.0); HEMOGLOBIN 11.9 g/dL (13.5-17.5); IMMATURE GRANULOCYTES 0.2 % (0-5); LYMPHOCYTES 17.6 % (15-50); MCH 26.1 pg (26.0-34.0); MCHC 32.7 g/dL (31.0-37.0); MCV 79.8 fL (80.0-100.0); MEAN PLATELET VOLUME 8.7 fL (7.4-10.4); MONOCYTES 10.3 % (2-11); PLATELET COUNT 378 10x3/uL (130-400); RBC 4.56 10x6/uL (4.20-6.10); RDW 14.2 % (11.5-14.5); WBC 8.2 10x3/uL (4.8-10.8)
[2019-01-26 06:59] LABS: ANION GAP 15.1 mmol/L (8-16); CALCIUM 8.8 mg/dL (8.5-10.1); CARBON DIOXIDE 27.3 mmol/L (21.0-32.0); CREATININE - SERUM 1.2 mg/dL (0.6-1.3); MAGNESIUM - SERUM 1.9 mg/dL (1.8-2.4); POTASSIUM - SERUM 4.4 mmol/L (3.5-5.1)
--- NOTE | 2019-01-26 07:09 | NUR ---
REPORT RECEVIED FROM REFLESHER AND PATIENT CARE ASSUMED. PATIENT SITTING UP IN BED ON PHONE. PATIENT IS AWAKE, ALERT AND ORIENTED X 4. PATIENT IS STABLE. PATIENT DENIES ANY NEEDS OR PAIN. WILL CONTINUE WITH PLAN OF CARE. SR UP X 2 BED IN LOW POSITION AND CALL LIGHT IN REACH.
[2019-01-26 08:52] VITALS: Ht 167.6 cm; Wt 81.6 kg
--- NOTE | 2019-01-26 09:10 | NUR ---
ROUTINE MEDS GIVEN. PATIENT IS STABLE AND VSS. PATIENT DENIES ANY NEEDS OR PAIN. WILL CONTINUE WITH PLAN OF CARE. SR UP X 2 BED IN LOW POSITION AND CALL LIGHT IN REACH.
[2019-01-26] MEDS ORDERED: LEVAQUIN750 MG PO (10:06)
[2019-01-26] MEDS ORDERED: PROTONIX40 MG PO (10:06)
[2019-01-26] MEDS ORDERED: TESSALON PERLE100 MG PO (10:07)
--- NOTE | 2019-01-26 10:45 | NUR ---
PATIENT AMBULATING IN HALLWAY AND TOLERATING WELL.
--- NOTE | 2019-01-26 11:02 | MORECARE ---
CASE MANAGEMENT DISCHARGE SUMMARY PATIENT: SIGRID STOLL UNIT: [id number] ADM DATE: 01/22/19 AGE: 63 : 59 SEX: M ROOM/BED: D.1211 AUTHOR: GINODOC PHYSICIAN: REFERRING PHYSICIAN: KIRBY FARIAS MD DATE OF SERVICE: 01/26/19 Discharge Plan Patient Name: SIGRID STOLL Facility: [facility]:[place] : 1955 Planned Disposition: Home Anticipated Discharge Date: Discharge Date: Expected LOS: Initial Reviewer: [email or web address] Initial Review Date: 01/25/2019 Generated: 01/26/19 12:02 pm Comments DCP- Discharge Planning Updated by [email or web address]: Deedee Barroso on 01/26/19 9:[address] Patient Name: SIGRID STOLL Encounter No: [id number] : 1955 Primary Insurance: MEDICAID [place] Anticipated DC Date: Planned Disposition: Home External Planned Provider: : DCP follow-up note: Patient in agreement with discharge plan. No changes to plan. Case management will follow and assist as needed. Deedee Barroso DCP- Discharge Planning Updated by [id number]: Deedee Barroso on 01/25/19 10:[address] Patient Name: SIGRID STOLL Admission Status: ER Accout number: [id number] Admission Date: 01-22-2019 : 1955 Admission Diagnosis:PNEUMONIA, UNSPECIFIED ORGANISM Attending: KIRBY FARIAS Current LOS: 3 Anticipated DC Date: Planned Disposition: Home Primary Insurance: MEDICAID [place] Discharge Planning Comments: CM MET WITH PATIENT ABOUT DC PLANNING/NEEDS. STATES IN [place] AT HOME AND PLANS TO DC TO HOME WITH FAMILY. DENIES NEED FOR HH, REHAB, OR EQUIPMENT. CM WILL FOLLOW AND ASSIST. Cartographic Engineer: Deedee Barroso DCPIA - Discharge Planning Initial Assessment Updated by [email or web address]: Deedee Barroso on 01/25/19 11:10 am * Is the patient Alert and Oriented? Yes * PCP ELVIN * Pharmacy [facility] * Preadmission Environment Home with Family * ADLs Independent * Equipment None * List name and contact numbers for known caregivers / representatives who currently or will assist patient after discharge: PAULO ANGELA, * Community resources currently utilized None * Additional services required to return to the preadmission environment? No * Can the patient safely return to the preadmission environment? Yes * Has this patient been hospitalized within the prior 30 days at any hospital? No Last DP export: 01/25/19 10:12 a Patient Name: SIGRID STOLL Page [phone] at 1102 All edits/amendments must be made on the electronic document DICTATION DATE: 01/26/191101 OPERATIONS PLANT ATTENDANT: DORA 01/26/19 110 RPT#: [id number] DC DATE: STATUS: ADM IN [facility] [address] [place] [address] END OF REPORT
[2019-01-26 11:27] VITALS: BP 114/74
--- NOTE | 2019-01-26 16:34 | MORECARE ---
CASE MANAGEMENT DISCHARGE SUMMARY PATIENT: SIGRID STOLL UNIT: [id number] ADM DATE: 01/22/19 AGE: 63 : 59 SEX: M ROOM/BED: D.1211 AUTHOR: GINODOC PHYSICIAN: REFERRING PHYSICIAN: KIRBY FARIAS MD DATE OF SERVICE: 01/26/19 Discharge Plan Patient Name: SIGRID STOLL Facility: [facility]:[place] : 1955 Planned Disposition: Home Anticipated Discharge Date: Discharge Date: 01/26/2019 Expected LOS: Initial Reviewer: [email or web address] Initial Review Date: 01/25/2019 Generated: 01/26/19 5:34 pm Comments DCP- Discharge Planning Updated by [email or web address]: Deedee Barroso on 01/26/19 9:[address] Patient Name: SIGRID STOLL Encounter No: [id number] : 1955 Primary Insurance: MEDICAID [place] Anticipated DC Date: Planned Disposition: Home External Planned Provider: : DCP follow-up note: Patient in agreement with discharge plan. No changes to plan. Case management will follow and assist as needed. Deedee Barroso DCP- Discharge Planning Updated by [id number]: Deedee Barroso on 01/25/19 10:[address] Patient Name: SIGRID STOLL Admission Status: ER Accout number: [id number] Admission Date: 01-22-2019 : 1955 Admission Diagnosis:PNEUMONIA, UNSPECIFIED ORGANISM Attending: KIRBY FARIAS Current LOS: 3 Anticipated DC Date: Planned Disposition: Home Primary Insurance: MEDICAID [place] Discharge Planning Comments: CM MET WITH PATIENT ABOUT DC PLANNING/NEEDS. STATES IN [place] AT HOME AND PLANS TO DC TO HOME WITH FAMILY. DENIES NEED FOR HH, REHAB, OR EQUIPMENT. CM WILL FOLLOW AND ASSIST. Glue Spreading Machine Operator: Deedee Barroso DCPIA - Discharge Planning Initial Assessment Updated by [email or web address]: Deedee Barroso on 01/25/19 11:10 am * Is the patient Alert and Oriented? Yes * PCP ELVIN * Pharmacy [facility] * Preadmission Environment Home with Family * ADLs Independent * Equipment None * List name and contact numbers for known caregivers / representatives who currently or will assist patient after discharge: PAULO ANGELA, * Community resources currently utilized None * Additional services required to return to the preadmission environment? No * Can the patient safely return to the preadmission environment? Yes * Has this patient been hospitalized within the prior 30 days at any hospital? No Last DP export: 01/26/19 10:02 a Patient Name: SIGRID STOLL Page 71507 at 1634 All edits/amendments must be made on the electronic document DICTATION DATE: 01/26/19 1633 NEEDLE LOOM TENDER: DORA 01/26/19 1633 RPT#: [id number] DC DATE:01/26/19 STATUS: DIS IN [facility] [address] [place] [address] END OF REPORT
--- NOTE | 2019-01-27 11:07 | CN ---
PATIENT NAME:SIGRID STOLL MEDICAL RECORD: [id number] : [birth year] [facility] ADMIT DATE: 01/22/19 ACCOUNT: [id number] CONSULTING PHYSICIAN: MICHAELLE CLARKE MD REFERRING PHYSICIAN: KIRBY FARIAS MD DATE OF CONSULTATION: 01/24/2019 HISTORY OF PRESENT ILLNESS: A 63-year-old gentleman with cardiovascular history, with history of hypertension, has a history of hyperlipidemia, aortic valve disease status post aortic valve replacement in October of this year secondary to bicuspid aortic valve, admitted with cough, chest pain, fever, chills, temperature to 102.9, had what appears to be left lower lobe pneumonia. LV function is normal. No vegetation noted on transthoracic echo, which is defervescing nicely. We are asked to see him concerning his cardiovascular status. PAST MEDICAL HISTORY: Includes: 1. History of cerebrovascular disease status post CVA. 2. History of hypertension. 3. Hyperlipidemia. 4. Postoperative atrial fibrillation. ALLERGIES: None known. MEDICATIONS: Include potassium 10 mEq p.o. daily, Lasix 20 mg p.o. every day, aspirin 325 every day, carvedilol 3.125 b.i.d., atorvastatin 40 every day, albuterol 2 puffs q.6 hours p.r.n. SOCIAL HISTORY: Nonsmoker, nondrinker. Has been trying to walk on a regular basis, 4 days a week since his valve replacement. Easily takes care of all his LDLs. REVIEW OF SYSTEMS: The patient reports easy bruising but reports no swollen glands. The patient reports no fever, no night sweats, no significant weight gain, no significant weight loss. No significant exercise tolerance. The patient reports no dry eyes, no irritation, no vision change. Patient reports no difficulty hearing and no ear pain. Patient reports no frequent nose bleeds or nose and sinus problems. Patient reports on arm pain on exertion. No shortness of breath while lying down. No history of heart murmur. Patient reports no cough, no wheezing or coughing up blood. Patient reports no abdominal pain, no vomiting. Normal appetite. No diarrhea and not vomiting blood. No nausea and no constipation. Patient reports no incontinence. No difficulty urinating. No hematuria. No increased frequency. Patient reports no muscle aches. No weakness, no arthralgias, no back pain. No swelling of the extremities. Patient reports no abnormal mole, no jaundice, no rashes. Reports no loss of consciousness. No weakness and no numbness. No seizures, dizziness, or headaches. The patient reports no depression, no sleep disturbance, feeling safe in a relationship and no alcohol abuse. Patient reports on fatigue. Reports no runny nose or sinus pressure. No itching, no hives, and no frequent sneezing. PHYSICAL EXAMINATION: GENERAL: Well-developed, well-nourished, in no acute distress, appears stated age. VITAL SIGNS: Blood pressure 117/73, pulse 77 and regular. CONSULT REPORT [id number] SIGRID STOLL GENE HEENT: Normocephalic and atraumatic. NECK: No bruits are noted. HEART: Regular, II/ systolic ejection murmur. LUNGS: Good air excursion. ABDOMEN: Soft, nontender. EXTREMITIES: Pulses 2+. No edema. NEUROLOGIC: Grossly intact. IMPRESSION: Community-acquired pneumonia, defervescing nicely. No stigmata of endocarditis on exam or transthoracic echo. Follow cultures as you are doing. Further recommendations based on clinical course. TRANSINT:[id number] Voice Confirmation ID: [id number] DOCUMENT ID: [id number] MICHAELLE CLARKE MD at 1107 CC: [id number] DICTATION DATE: 01/24/19 111 CARD PUNCHER: 01/24/19 1424 DIS IN 01/26/19 [facility] [address] [place] [address]
--- NOTE | 2019-01-27 11:08 | EC ---
PATIENT:SIGRID STOLL DATE OF SERVICE: 01/22/19 SEX: M MEDICAL RECORD: [id number] DATE OF : [birth year] LOCATION:D. D.121 AGE OF PATIENT: 63 ADMISSION DATE: 01/22/19 REFERRING PHYSICIAN: INTERPRETING PHYSICIAN: MICHAELLE CLARKE MD ECHOCARDIOGRAM REPORT ECHO CHARGES 4 ECHO COMPLETE Date: 01/24/19 CLINICAL DIAGNOSIS: SBE H/O AVR ECHOCARDIOGRAPHIC MEASUREMENTS (adult normal given) AC root (d.<3.7cm) 2.7 cm LV Septum d (<1.2 cm> 1.2 cm Valve Excursion 1.0 cm LV Septum (systole) 1.8 cm Left Atria (s.<4.0cm> 4.4 cm LVPW d(<1.2cm) 1.5 cm RV (d.<2.3cm) 3.2 cm LVPW (sytole) 1.7 cm LV diastole(<5.6CM) 5.0 cm MV E-F(>70mm/sec) cm LV systole 3.1 cm LVOT Diameter 1.6 cm MV exc.(>10mm) cm Est.ejection fraction (50-75%) % DOPPLER: LVIT cm/sec A 50.0 cm/sec E 86.0 cm/sec LA cm/sec RVSP 40.0 mmHg LVOT 102 cm/sec AOP1/2T m/s Asc. Ao 325 cm/sec RVOT 72.0 cm/sec RA cm/sec PA 102 cm/sec AV Gradient Peak 42.3 mmHg AV Mean 19.0 mmHg AV Area 0.7 cm MV Gradient Peak 3.8 mmHg MV Mean 1.3 mmHg MV Area cm COMMENTS: Cement Mason Maintenance: 1 DARRYL REEDEROE Rover Tender: 3 Dr. Villegas TAPE# PACS Pericardial Effusion N DATE OF SERVICE: Adequate 2D, color flow, spectral Doppler, and M-mode. LVH is present. LV internal dimension is normal. There is mild septal hypokinesis because he is postop valve replacement state. Overall, LV function appears to be lower limits of normal to mildly reduced at 45% to 50%. Prosthetic tissue aortic valve was noted with mildly elevated velocities. No obvious vegetation is noted. Left atrium mildly dilated at 4.4 cm. Mitral valve shows no prolapse. Trace MR. Right-sided chambers are grossly normal. Trace TR. ECHOCARDIOGRAM REPORT [id number] SIGRID STOLL GENE TRANSINT:[id number] Voice Confirmation ID: [id number] DOCUMENT ID: [id number] MICHAELLE CLARKE MD at 1108 CC: [id number] DICTATION DATE: 01/25/19 1041 AIRLINE OPERATIONS AGENT: 01/25/19 1128 DIS IN 01/26/19 [place] [id number] [place] [id number]
== END 2019-01-26 13:51 | disposition home or self-care (01) | DRG 871 ==
LOC: D.ER 17:58 → D.M3 19:45
PROVIDERS: Family Medicine; ADMIT Family Medicine; ATTEND Family Medicine
DX: A41.9 Sepsis, unspecified organism (principal); J18.1 Lobar pneumonia, unspecified organism; E83.42 Hypomagnesemia; D64.9 Anemia, unspecified; I10 Essential (primary) hypertension; E78.5 Hyperlipidemia, unspecified; Z95.2 Presence of prosthetic heart valve; Z86.73 Personal history of transient ischemic attack (TIA), and cerebral infarction without residual deficits